=== PATIENT | male | born 1965 | race Caucasian/White ===

== ENCOUNTER 2021-12-27 11:12 | Outpatient (CLI) | payer OTHER, SELFPAY ==
--- NOTE | ~2021-12-27 | XR_ITS ---
EXAMINATION: XR knee RT 3V DATE: 12/27/2021 11:34 INDICATION: Right knee pain. TECHNIQUE: 3 views of right knee were obtained. COMPARISON: Right tibia and fibula radiographs 05/03/2014 FINDINGS: Bone alignment is normal. No fracture. There is mild osteoarthritis of medial and patellofe moral compartments. There is a large knee joint effusion. IMPRESSION: 1. Mild right knee osteoarthritis. 2. Large knee joint effusion. Reviewed, dictated and finalized at location E. 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
== END 2021-12-27 11:13 | disposition home or self-care (01) ==
LOC: CHSIMG 11:15
PROVIDERS: PCP Nurse Practitioner Family; Visit Provider Nurse Practitioner Family
DX: M25.561 Pain in right knee (principal)
CPT/HCPCS: 73562

== ENCOUNTER 2021-12-31 09:34 | Outpatient (CLI) | payer OTHER, SELFPAY ==
--- NOTE | ~2021-12-31 | MR_ITS ---
EXAMINATION: MR knee RT wo con DATE: 12/31/2021 11:25 INDICATION: Right knee pain TECHNIQUE: Magnetic resonance imaging (MRI) of the right knee was performed without intravenous contr ast. Sequences included coronal PD-weighted FSE, coronal PD-weighted FS FSE, sagittal T2-weighted FS E, sagittal PD-weighted FS FSE and axial PD weighted fat saturated FSE. COMPARISON: None. FINDINGS: Medial compartment: Complex tear at the posterior horn of the medial meniscus with longitudinal horizontal tear plane ext ending anteriorly into the medial meniscal body. Shallow chondral ulceration along the anterior weigh tbearing medial femoral condyle. Deeper chondral ulceration without degenerative subchondral changes at the central weightbearing medial femoral condyle. Partial-thickness cartilage loss with smooth cho ndral surface along the medial margin of the medial tibial plateau. Lateral compartment: Fraying along the free edge versus small radial tear along the inner margin of the body of the latera l meniscus. Partial-thickness chondral fissuring without degenerative subchondral changes at the ante rior weightbearing lateral femoral condyle and along the medial and posterior aspect of the lateral t ibial plateau including along the shoulder the intercondylar eminence. Patellofemoral compartment: Shallow chondral ulceration and scattered deep fissuring at the patella including at the apical ridge , medial and lateral facets. Trochlear cartilage is normal. Ligaments and tendons: Anterior and posterior cruciate ligaments are normal. The medial collateral ligament and fibular francisco ateral ligament complex are normal. Moderate tendinopathy without discrete tear at the distal quadric eps tendon. Mild proximal patellar tendinopathy. Mild semimembranosus tendinopathy without discrete t ear. The remainder of the visualized medial and lateral hamstring tendons as well as the iliotibial b and are normal. Fluid: Large right knee joint effusion with moderate scattered synovitis in the suprapatellar pouch and callie g the posterior margin of Hoffa's fat pad. No loose osteochondral bodies identified. Osseous/other: Normal marrow signal. No fracture or pathologic marrow replacing process. IMPRESSION: 1. Complex medial meniscal tear. 2. possible small radial tear versus focal fraying along the free edge of the body of the lateral men iscus. 3. Tricompartmental osteoarthritis and mild to moderate severity medial compartment and mild in the l ateral and patellofemoral compartments each with regions of moderate grade chondromalacia. 4. Large right knee joint effusion. 5. Moderate distal quadriceps and mild proximal patellar and distal semimembranosus tendinopathy with out discrete tears. Reviewed, dictated and finalized at location A. S SCULLION IMPRESSION: 1. Complex medial meniscal tear. 2. possible small radial tear versus focal fraying along the free edge of the b roberto carlos of the lateral meniscus. 3. Tricompartmental osteoarthritis and mild to moderate severity medial compart ment and mild in the lateral and patellofemoral compartments each with regions of moderate grade chondromalacia. 4. Large right knee joint effusion. 5. Moderate distal quadriceps and mild proximal patellar and distal semimembran osus tendinopathy without discrete tears.
== END 2021-12-31 09:35 | disposition home or self-care (01) ==
LOC: CHSIMG 09:36
PROVIDERS: PCP Nurse Practitioner Family; Visit Provider Nurse Practitioner Family
DX: M25.561 Pain in right knee (principal); M25.469 Effusion, unspecified knee
CPT/HCPCS: 73721

== ENCOUNTER 2022-04-14 08:07 | Emergency (ER) | payer OTHER, SELFPAY ==
--- NOTE | 2022-04-14 08:10 | ED.URI ---
HPI - URI/Sore Throat General Chief Complaint: Upper Respiratory Infection Stated Complaint: Cough/Chest Congestion Time Seen by Provider: 04/14/22 08:10 Source: patient and RN notes reviewed History of Present Illness HPI Narrative: Patient is a 56-year-old male who presents the urgent care with complaints of cough, chest congestion and wheezes. Patient states he does have a history of COPD and currently smokes approximately 1 pack/day. Patient denies any ill exposures, nausea, vomiting, fever. Patient has been taking a daily allergy medication as well as using his inhalers and Mucinex every 12 hours. No other acute complaints. No acute distress noted. Patient aware of the plan of care. Some parts of this dictation were generated by voice recognition software and may contain typographical and/or grammatical inaccuracies. Related Data Allergies Allergy/AdvReac Type Severity Reaction Status Date / Time No Known Allergies Allergy Verified 04/14/22 08:29 Review of Systems Review of Systems: CONSTITUTIONAL: Denies fever, chills, or sweats. EYES: Denies visual changes, redness, or discharge. ENT: Reports rhinorrhea and postnasal drainage CARDIOVASCULAR: Denies chest pain, palpitations, or edema. RESPIRATORY: Reports no wheezes, cough, chest congestion GASTROINTESTINAL: Denies abdominal pain, nausea, vomiting, or diarrhea. GENITOURINARY: Denies dysuria or hematuria. SKIN: Denies rash or itching. MUSCULOSKELETAL: Denies back pain, joint pain, or myalgia. NEUROLOGIC: Denies headache, numbness, or weakness. All other systems reviewed are negative, except as documented in HPI. [facility] Past Medical History Medical History COPD (chronic obstructive pulmonary disease) Surgical History Surgical History History of hernia surgery Social History Social History Smoking status: Current every day smoker Tobacco type: cigarettes Alcohol intake: current Comments At the time of my signature, I reviewed and agree with the nursing past medical, surgical, social, and family history. There is no relevant family history pertinent to the patient complaint. Exam Narrative: GENERAL: This is a well-nourished, well-developed patient, in no apparent distress. HEAD: normocephalic, atraumatic. EYES: PERRL. Sclera clear/white. Vision is grossly intact. EARS: External ears normal, auditory canals clear and without drainage, TMs normal without perforation. Hearing grossly intact. NOSE: External nose normal with no obvious nasal discharge, nares without redness, clear rhinorrhea. THROAT: Mucous membranes moist, posterior pharynx clear. Moderate postnasal drainage NECK: Neck supple CARDIOVASCULAR: Regular rate and rhythm without murmurs, gallops, or rubs. RESPIRATORY: Slight crackles throughout with expiratory wheezes to bilateral upper lobes SKIN: warm, intact with no suspicious lesions or rash, good texture and turgor. NEURO: awake, alert, and oriented to person, place and time. There were no obvious focal neurologic abnormalities. EXTREMITIES: No clubbing, cyanosis, or edema. Course Course Level of Care: Express Care Visit Vital Signs Vital signs: Vital Signs Temperature 97.9 F 04/14/22 08:14 Pulse Rate 83 04/14/22 08:14 Respiratory Rate 20 04/14/22 08:14 Blood Pressure 154/74 H 04/14/22 08:14 Pulse Oximetry 98 04/14/22 08:14 Temperature 97.9 F 04/14/22 08:14 Pulse Rate 83 04/14/22 08:14 Respiratory Rate 20 04/14/22 08:14 Blood Pressure 154/74 H 04/14/22 08:14 Pulse Oximetry 98 04/14/22 08:14 Reviewed-patient is informed that they may have pre-hypertension or hypertension based on a blood pressure reading in the department. I recommend the patient call the primary care provider listed on their discharge instructions or a physician of
[2022-04-14 08:14] VITALS: BP 154/74; PULSE 83; RESP 20; TEMP 36.6; O2SAT 98
== END 2022-04-14 08:47 | disposition home or self-care (01) ==
PROVIDERS: Emergency Provider Nurse Practitioner Family
DX: J44.9 Chronic obstructive pulmonary disease, unspecified (principal); F17.210 Nicotine dependence, cigarettes, uncomplicated; R06.2 Wheezing
CPT/HCPCS: 99213; G0463

== ENCOUNTER 2024-07-11 08:04 | Emergency (ER) | payer OTHER, SELFPAY ==
[2024-07-11 08:12] VITALS: BP 155/89; PULSE 98; RESP 20; TEMP 36.8; O2SAT 97
--- NOTE | 2024-07-11 08:15 | ED.EXTPRO ---
HPI - Extremity Problem General Chief complaint: Extremity Problem,Nontraumatic Stated complaint: Left Elbow Swelling Time Seen by Provider: 07/11/24 08:15 Source: patient Mode of arrival: ambulatory Limitations: no limitations History of Present Illness HPI Narrative: 58-year-old male presents with complaint pain, swelling and redness to left elbow since yesterday. Denies injury. Patient has several scratches to left forearm that he states are from his neighbor's dog 1 week ago. Patient has small scab near left elbow that he thought was possibly a insect bite. Denies itching to left elbow. Afebrile. Denies body aches, chills. All systems reviewed and negative except as noted above. Related Data Allergies Allergy/AdvReac Type Severity Reaction Status Date / Time No Known Allergies Allergy Verified 01/25/24 11:33 Review of Systems Review of Systems: CONSTITUTIONAL: Denies fever, chills, or sweats. EYES: Denies visual changes, redness, or discharge. ENT: Denies rhinorrhea, congestion, sore throat, or otalgia. CARDIOVASCULAR: Denies chest pain, palpitations, or edema. RESPIRATORY: Denies cough or dyspnea. GASTROINTESTINAL: Denies abdominal pain, nausea, vomiting, or diarrhea. GENITOURINARY: Denies dysuria or hematuria. SKIN: Denies rash or itching. MUSCULOSKELETAL: Reports pain, swelling, redness to left elbow. NEUROLOGIC: Denies headache, numbness, or weakness. PSYCHIATRIC: Denies anxiety or depression. All other systems reviewed are negative, except as documented in HPI. [facility] Past Medical History Medical History (Updated 07/11/24 @ 08:25 by Sherrie Peñaloza NP) COPD (chronic obstructive pulmonary disease) Positive colorectal cancer screening using Cologuard test Surgical History Surgical History History of hernia surgery Social History Social History Smoking status: Current every day smoker Tobacco type: cigarettes Alcohol intake: current Comments At time of signature, agree with nursing past medical, surgical, social and family history. There is no relevant family history pertinent to the presenting complaint. Exam Narrative: GENERAL: This is a well-nourished, well-developed patient, in no apparent distress. HEAD: normocephalic, atraumatic. EYES: PERRL. Sclera clear/white. Vision is grossly intact. EARS: External ears normal NOSE: External nose normal NECK: Neck supple, non-tender without lymphadenopathy, masses or thyromegaly. CARDIOVASCULAR: Regular rate and rhythm without murmurs, gallops, or rubs. RESPIRATORY: Clear to auscultation. Breath sounds equal bilaterally. No wheezes, rales, or rhonchi. SKIN: warm, Dry, intact with no suspicious lesions or rash, good texture and turgor. NEURO: awake, alert, and oriented to person, place and time. There were no obvious focal neurologic abnormalities. EXTREMITIES: erythema, swelling, tenderness to L elbow. fluctuance to bursal sac. no drainage. full ROM to L elbow, distal NV intact. Course Course Level of Care: Express Care Visit Vital Signs Vital signs: Vital Signs Temperature 36.8 C 07/11/24 08:12 Pulse Rate 98 07/11/24 08:12 Respiratory Rate 20 07/11/24 08:12 Blood Pressure 155/89 H 07/11/24 08:12 Pulse Oximetry 97 07/11/24 08:12 Oxygen Delivery Room Air 07/11/24 08:12 Temperature 36.8 C 07/11/24 08:12 Pulse Rate 98 07/11/24 08:12 Respiratory Rate 20 07/11/24 08:12 Blood Pressure 155/89 H 07/11/24 08:12 Pulse Oximetry 97 07/11/24 08:12 Oxygen Delivery Room Air 07/11/24 08:12 reviewed MDM - Extremity (Nontraumatic) MDM Narrative Medical decision making narrative: most likely olecranon bursitis to L elbow. possibly related to recent scratches from a dog 1 wk ago. afebrile, nontoxic. ROM and NV intact. will start abx and refer to orthopedics. Patient is aware
== END 2024-07-11 08:38 | disposition home or self-care (01) ==
PROVIDERS: Emergency Provider Nurse Practitioner Family
DX: M70.22 Olecranon bursitis, left elbow (principal); E03.0 Congenital hypothyroidism with diffuse goiter; J44.9 Chronic obstructive pulmonary disease, unspecified; F17.210 Nicotine dependence, cigarettes, uncomplicated
CPT/HCPCS: 87070; 87075; 87181; 87205; 99213; G0463

== ENCOUNTER 2024-07-11 15:57 | Outpatient (NON) | payer OTHER, SELFPAY | END 2024-07-11 15:58 | disposition home or self-care (01) | LOC: ANHLAB 16:01 | PROVIDERS: Visit Provider Orthopaedic Surgery | DX: M70.22 Olecranon bursitis, left elbow (principal) | CPT/HCPCS: 87070; 87075; 87181; 87205 ==

== ENCOUNTER 2024-09-23 08:00 | Outpatient (RCR) | payer OTHER, SELFPAY ==
--- NOTE | 2024-08-25 10:20 | OPREHPOC ---
Outpatient Therapy Plan of Care This is a Multidisciplinary Plan of Care that may contain components documented by all disciplines (PT, OT, and ST.) PT Problem 1 PT Problem #1 Knowledge Deficit PT Goal 1 Goal / Goal Update [place] with HEP Target Visit 4 PT Problem 2 PT Problem #2 Impaired Range of Motion PT Goal 1 Goal / Goal Update Patient will achieve 170 degrees pain free right shoulder flexion for improved reaching ability for work related activity Target Visit 8 PT Goal 2 Goal / Goal Update Patient will improve R shoulder internal rotation to 70 degrees to reduce capsular impingement for improved humeral head mobility and reduced impingement with repetitive activity Target Visit 8 PT Problem 3 PT Problem #3 Impaired Strength PT Goal 1 Goal / Goal Update Improve R shoulder flexion strength to 4+/5 to improve active object lifting and overhead activity for work related function Target Visit 8 PT Goal 2 Goal / Goal Update Improve R shoulder external rotation strength to 4 +/5 to improve capsular stability of shoulder complex Target Visit 8
--- NOTE | 2024-08-25 10:21 | PTOPEVAL1 ---
Assessment and note entered by Deric Laughlin, PT Evaluation Information Assessment Status Evaluation Diagnosis Unspecified rotator cuff tears of fior shoulders ICD-10 Condition Codes (PT) M25.511,M25.512 Onset 2019 Subjective Information Reports that he has been having a bit more pain in his right shoulder with working but in his left shoulder with sleeping. He is right handed and feels that he is having more pain in his right shoulder. Reports that he does get numbness and tingling in his left index finger and thumb. Progressive insidious onset of pain. 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 Reported Pain Level Pain Score 2,1: Self Report Assessment PT Clinical Summary Patient presents with minor ROM loss with greatest deficit in posterior capsule in R shoulder resulting in impingement and pain in overhead activity. Patient weakness noted in upper rotator cuff with tenderness for supraspinatus musculature on dominant shoulder right. Patient will benefit from skilled therapy to address these deficits to improve stability and functional motion for pain relief and improved functional capacity. Plan of Care Interventions Electrical Stimulation,Hot Pack/Cold Pack,Manual Therapy,Neuro Re-education,Therapeutic Activities, Therapeutic Exercise PT Services Indicated Yes Treatment Frequency and 2x/week for 8 visits Duration These treatments will address the objective and functional deficits as defined above. The patient will be advanced safely and appropriately in order for the patient to progress towards his/her prior level of function. Additional exercises will be introduced and as well as a comprehensive home exercise program upon discharge, if needed, ?to ensure carryover of functional gains achieved in the clinic. This treatment plan has been reviewed and agreement upon by the patient.
--- NOTE | 2024-09-23 08:31 | PTOPDC ---
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 Education for posture, home exercises and pain management completed. The goals were partially met. Discharge PT, he is to continue with his HEP and returned to in October for follow up. Plan of Care PT Services Indicated No
== END 2024-09-23 08:53 | disposition home or self-care (01) ==
LOC: ANHPT 08:00
PROVIDERS: Visit Provider Orthopaedic Surgery
DX: M75.101 Unspecified rotator cuff tear or rupture of right shoulder, not specified as traumatic (principal); M12.811 Other specific arthropathies, not elsewhere classified, right shoulder; M12.812 Other specific arthropathies, not elsewhere classified, left shoulder; M75.102 Unspecified rotator cuff tear or rupture of left shoulder, not specified as traumatic
CPT/HCPCS: 97014; 97110; 97140; 97161; 97530; G0283

== ENCOUNTER 2024-12-14 09:11 | Outpatient (CLI) | payer OTHER, SELFPAY ==
--- NOTE | ~2024-12-14 | MR_ITS ---
EXAMINATION: MR shoulder LT wo con DATE: 12/14/2024 10:05 INDICATION: Left shoulder pain. TECHNIQUE: Magnetic resonance imaging (MRI) of the left shoulder was performed without intravenous co ntrast. Sequences included axial PD-weighted FS FSE, coronal oblique PD-weighted FS FSE and T2-weight ed FS FSE, and sagittal oblique T2-weighted FS FSE and T1-weighted FSE. COMPARISON: Left shoulder radiographs 08/05/2024 FINDINGS: Coracoacromial arch: The acromion undersurface is curved in morphology (type II). There is severe acromioclavicular joint osteoarthritis including inferior directed osteophytes. There is mild subacromial/subdeltoid bursitis . Rotator cuff: There is mild supraspinatus and infraspinatus tendinopathy. Teres minor tendon is normal. Subscapular is tendon is normal. There is mild fatty atrophy of subscapularis and teres minor muscle bellies. Biceps tendon and glenoid labrum: Biceps tendon is in bicipital groove. Intra-articular biceps tendon is normal. There is a tear of pos terior inferior glenoid labrum with multiloculated paralabral cyst measuring 2.4 x 0.6 cm . Fluid: There is no glenohumeral joint effusion. Bones/cartilage: There is shallow partial-thickness cartilage loss of glenoid. There is cartilage surface irregularity of humeral head. IMPRESSION: 1. Mild rotator cuff tendinopathy. No tear. 2. Mild glenohumeral joint chondrosis. 3. Tear of posterior inferior labrum with paralabral cyst. 4. Severe acromioclavicular joint osteoarthritis. Reviewed, dictated and finalized at location B. 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
--- NOTE | ~2024-12-14 | MR_ITS ---
EXAMINATION: MR shoulder RT wo con DATE: 12/14/2024 09:52 INDICATION: Right shoulder pain. TECHNIQUE: Magnetic resonance imaging (MRI) of the right shoulder was performed without intravenous c ontrast. Sequences included axial PD-weighted FS FSE, coronal oblique PD-weighted FS FSE and T2-weigh laura FS FSE, and sagittal oblique T2-weighted FS FSE and T1-weighted FSE. COMPARISON: Right shoulder radiographs 08/05/2024 FINDINGS: Coracoacromial arch: The acromion undersurface is curved in morphology (type II). There is severe acromioclavicular joint osteophytosis including inferiorly directed osteophytes. There is a physiologic volume of fluid in silverman bacromial/subdeltoid bursa. Rotator cuff: There is mild supraspinatus tendinopathy and moderate infraspinatus tendinopathy. Teres minor tendon is normal. There is mild subscapularis tendinopathy. There is mild fatty atrophy of infraspinatus mus alex belly. Biceps tendon and glenoid labrum: Biceps tendon is in bicipital groove. Intra-articular biceps tendon is normal. There is a degenerativ e tear of superior labrum from 11:00 to 12:00 (SLAP tear). Fluid: There is a small glenohumeral joint effusion with loose bodies measuring up to 7 mm. Bones/cartilage: There is partial-thickness cartilage loss of glenoid and humeral head, deep at the glenoid central ar ticular surface. IMPRESSION: 1. Moderate rotator cuff tendinopathy. No tear. 2. Moderate glenohumeral joint chondrosis. 3. Small glenohumeral joint effusion with loose bodies. 4. Severe acromioclavicular joint osteoarthritis. Reviewed, dictated and finalized at location B. LAR JS DEVELOPER
== END 2024-12-14 09:12 | disposition home or self-care (01) ==
PROVIDERS: PCP Physician Assistant Surgical; Visit Provider Physician Assistant Surgical
DX: M19.011 Primary osteoarthritis, right shoulder (principal); M19.012 Primary osteoarthritis, left shoulder; M24.011 Loose body in right shoulder
CPT/HCPCS: 73221

== ENCOUNTER 2025-01-11 13:38 | Outpatient (CLI) | payer OTHER, SELFPAY ==
--- NOTE | ~2025-01-11 | XR_ITS ---
EXAMINATION: XR lg joint inject/asp w image, XR lg joint inject/asp add DATE: 01/11/2025 14:56 INDICATION: Bilateral shoulder pain TECHNIQUE: A time-out was performed to verify the patient's name, date of , and procedure to b e performed. The procedure including the risks, benefits, and alternatives was discussed with the pat ient. Risks discussed included bleeding and infection. The patient understood the risks and agreed to proceed. Attention was first turned to the right shoulder. The skin overlying the rotator cuff inter ashley of the right humeral joint was prepped and draped in usual sterile fashion. Anesthetic was admin istered with 1% lidocaine subcutaneously. A 22 G needle was advanced under fluoroscopic guidance int o the joint. Injection of 1 mL of Omnipaque 240 confirmed intra-articular position of the needle. S ubsequently, injectate consisting of 5 mm a 4:1 mixture of 1% lidocaine: 80 mg/mL Depo-Medrol for a t otal dosage of 80 mg Depo-Medrol was instilled. Washout of contrast was seen confirming intra-articul ar administration. The needle was removed and the entry site was cleaned and dressed. Attention was next turned to the left shoulder. The skin overlying the rotator cuff interval of the l eft humeral joint was prepped and draped in usual sterile fashion. Anesthetic was administered with 1% lidocaine subcutaneously. A 22 G needle was advanced under fluoroscopic guidance into the joint. Injection of 1 mL of Omnipaque 240 confirmed intra-articular position of the needle. Subsequently, injectate consisting of 5 mm a 4:1 mixture of 1% lidocaine: 80 mg/mL Depo-Medrol for a total dosage o f 80 mg Depo-Medrol was instilled. Washout of contrast was seen confirming intra-articular administra tion. The needle was removed and the entry site was cleaned and dressed. There were no immediate com plications. Fluoroscopy exposure time for the combined procedures was 0.2 minutes. A total Total DAP was 0.5 Gycm^2 The total number of images was 4. FINDINGS: Real-time fluoroscopy demonstrates the needle and contrast first in the right glenohumeral joint and subsequently in the left glenohumeral joint. Patient's pain prior to procedure:04/01. Patie nt's pain following the procedure: 04/01. IMPRESSION: 1. Successful left glenohumeral joint injection of local anesthetic and steroid with no change in the patient's presenting pain. 2. Successful right glenohumeral joint injection of local anesthetic and steroid with no change in th e patient's presenting pain. Reviewed, dictated and finalized at location A. DISCHARGE IMPRESSION: 1. Successful left glenohumeral joint injection of local anesthetic and steroid with no change in the patient's presenting pain. 2. Successful right glenohumeral joint injection of local anesthetic and steroi d with no change in the patient's presenting pain.
--- OUTSIDE RECORDS SUMMARY | 2025-01-11 13:43 | XMS_ITS | Referral Summary ---
Author Organization [facility] Medical Office Building B Address [address] [place] [address] Care Team Providers Care Coke Crane Operator Name Role Phone Bruce Holbrook MD Primary Care Provider + Encounters Date Type Department Care Team Description 11/29/2024 Telephone [facility] Pulmonary at [address] [place] [phone] Margarita Parsons LPN 11/11/2024 Telephone [facility] Gastroenterology at [address] [place] [phone] Bert Reynolds DO 11/08/2024 10:55 AM MEDICAL RADIATION THERAPIST Lab [address] Centrilobular emphysema (HCC) 11/08/2024 10:30 AM MEDICAL RADIATION THERAPIST Office Visit [facility] Pulmonary at [address] [place] [id number] Eyal Collazo DO Centrilobular emphysema (HCC) (Primary Dx); Tobacco use; Pulmonary nodules; Personal history of nicotine dependence 10/25/2024 3:10 PM MEDICAL RADIATION THERAPIST - 10/25/2024 11:59 PM MEDICAL RADIATION THERAPIST Hospital Encounter [address] [address] Personal history of nicotine dependence Discharge Disposition: Discharge to home or self care 10/25/2024 3:10 PM MEDICAL RADIATION THERAPIST - 10/25/2024 11:59 PM MEDICAL RADIATION THERAPIST Hospital Encounter [facility] Respiratory [address] [place] [id number] Chronic obstructive pulmonary disease with acute exacerbation (HCC) Discharge Disposition: Discharge to home or self care 10/24/[address] [place] [address] Chiara Hurd RN from Last 3 Months Allergies No known active allergies Medications albuterol HFA (PROVENTIL HFA,VENTOLIN HFA,PROAIR HFA) 90 mcg/actuation inhaler Inhale 2 puffs every 4 (four) hours as needed Active predniSONE (DELTASONE) 20 mg tablet Take 1 tablet (20 mg) by mouth daily 11/01/2024 Active cetirizine 10 mg capsule Take 1 tablet by mouth daily Active fluticasone-umec lidin-vilanter (Trelegy Ellipta) 200-62.5-25 mcg inhaler Inhale 1 puff daily 1 each 11 11/08/2024 Active Active Problems Problem Noted Date Diagnosed Date Encounter for screening colonoscopy 11/11/2024 Pulmonary nodules 11/08/2024 Centrilobular emphysema 11/08/2024 Tobacco use 11/08/2024 Social History Tobacco Use Types Packs/Day Years Used Date Smoking Tobacco: Every Day Cigarettes 1 26.1 Started: 1998 Passive Smoke Exposure: Past Smokeless Tobacco: Former Chew Tobacco Cessation:Ready to Q uit: Not Asked; Counseling Given: Not Answered Alcohol Use Standard Drinks/Week Comments Yes 0 (1 standard drink = 0.6 oz pur e alcohol) AUDIT-C Answer Date Recorded Q1: How often do you have a drink containing alcohol? 4 or more times a week 11/08/2024 Average Number of Drinks Not on file 024 Frequency of Binge Drinking Not on file 10/23 Sex and Gender Information Value Date Recorded Sex Assigned at Not on file Legal Sex Male 11:49 PM MEDICAL RADIATION THERAPIST Gender Identity Not on file Sexual Orientation Not on file Last Filed Vital Signs Vital Sign Reading Time Taken Comments Blood Pressure 148/74 11/08/2024 10:25 AM MEDICAL RADIATION THERAPIST Pulse 93 11/08/2024 10:25 AM MEDICAL RADIATION THERAPIST Temperature 36.8 C (98.2 F) 11/08/2024 10:25 AM MEDICAL RADIATION THERAPIST Respiratory Rate 16 11/08/2024 10:25 AM MEDICAL RADIATION THERAPIST Oxygen Saturation 93% 11/08/2024 10:25 AM MEDICAL RADIATION THERAPIST Inhaled Oxygen Concentration - - Weight 116.6 kg (257 lb) 11/08/2024 10:25 AM MEDICAL RADIATION THERAPIST Height 180.3 cm (5' 11 ) 11/08/2024 10:25 AM MEDICAL RADIATION THERAPIST Body Mass Index 35.84 11/08/2024 10:25 AM MEDICAL RADIATION THERAPIST Plan of Treatment Upcoming Encounters Date Type Department Care Team (Late st Contact Info) Description 06/06/2025 7:30 AM CDT Hospital Encounter [facility] [address] [place] [address] Bert Reynolds, DO [address] [facility] [address] [place] [address] 06/06/2025 7:30 AM CDT - 06/06/2025 8:00 AM CDT Surgery [address] [address] Bert Reynolds, [address] [facility] [address] [place] [address] COLONOSCOPY Scheduled Procedures Name Priority Associated Diagnoses Date/Ti me COLONOSCOPY Encounter for screening colonoscopy 06/06/2025 7:30 AM CDT Procedures Procedure Name Priority Date/Time Associated Diagnosis Comments DIFFERENTIAL AUTO Routine 11/08/2024 10: 58 AM MEDICAL RADIATION THERAPIST Centrilobular emphysema (HCC) CBC WITH AUTO DIFFERENTIAL Routine 11/08/2024 10:58 AM MEDICAL RADIATION THERAPIST Centrilobular emphysema (HCC) IGE Routine 11/08/2024 10:58 AM MEDICAL RADIATION THERAPIST Centrilobular emphysema (HCC) CT LUNG CANCER SCREENING Schedule Routine, Read Routine (OP Routine) 10/25/2024 4:13 PM MEDICAL RADIATION THERAPIST Personal history of nicotine dependence PULMONARY FUNCTION TEST (PFT) Routine 10/25/2024 4:06 PM MEDICAL RADIATION THERAPIST Chronic obstructive pulmonary disease with acute exacerbation (HCC) from Last 3 Months Results * (ABNORMAL) Differential, auto (11/08/2024 10:58 AM MEDICAL RADIATION THERAPIST) Neutrophil abs 9.5(H) 1.5 - 6.5 K/cumm Imm gran abs 0.3(H) 0.0 - 0.1 K/cumm [facility] Lymphocyte abs 2.5 0.8 - 3.3 K/cumm [facility] ([place]) Monocyte abs 1.2(H) 0.2 - 0.8 K/cumm [facility] ([place]) Eosinophil abs 0.3 0.0 - 0.5 K/cumm [facility] ([place]) Basophil abs 0.1 0.0 - 0.1 K/cumm [facility] ([place]) Neutrophil pct 68.1 % [facility] Comment: Interpretive Data Percent cell count reference ranges are not reported, since discordance with absolute values may lead to misinterpretation of CBC data. Current Interpretive Data was last revised on 2018. Imm gran pct 2.4 % [facility] ([place]) Comment: Interpretive Data Percent cell count reference ranges are not reported, since discordance with absolute values may lead to misinterpretation of CBC data. Current Interpretive Data was last revised on 2018. Lymphocyte pct 18.0 % [facility] ([place] Comment: Interpretive Data Percent cell count reference ranges are not reported, since discordance with absolute values may lead to misinterpretation of CBC data. Current Interpretive Data was last revised on 2018. Monocyte pct 8.3 % [facility] ([place]) Comment: Interpretive Data Percent cell count reference ranges are not reported, since discordance with absolute values may lead to misinterpretation of CBC data. Current Interpretive Data was last revised on 2018. Eosinophil pct 2.4 % [facility] Comment: Interpretive Data Percent cell count reference ranges are not reported, since discordance with absolute values may lead to misinterpretation of CBC data. Current Interpretive Data was last revised on 2018. Basophil pct 0.8 % [facility] ([place]) Comment: Interpretive Data Percent cell count reference ranges are not reported, since discordance with absolute values may lead to misinterpretation of CBC data. Current Interpretive Data was last revised on 2018. Blood 11/08/2024 10:5 8 AM MEDICAL RADIATION THERAPIST 11/08/2024 1:34 PM MEDICAL RADIATION THERAPIST [facility] [address] [facility] LAB BLOOD ORDERABLES Amelia l Result [facility] ([place] 1 [facility] [employer] [place] [address] * (ABNORMAL) CBC with auto differential (11/08/2024 10:58 AM MEDICAL RADIATION THERAPIST) WBC 13.9(H) 3.8 - 9.9 K/cumm Hgb 16.2 13.0 - 17.5 g/dL [facility] ([place] Hct 47.6 38.9 - 50.3 % [facility] Plt 328 150 - 400 K/cumm [facility] ([place]) MPV 9.0(L) 9.1 - 12.3 fL [facility] RBC 4.91 4.30 - 5.80 M/cumm [facility] ([place]) MCV 96.9(H) 81.3 - 96.4 fL [facility] ([place]) MCH 33.0 27.1 - 33.3 pg [facility] ([place] MCHC 34.0 32.3 - 35.7 g/dL [facility] ([place]) RDW CV 12.1 11.1 - 14.9 % [facility] RDW SD 43.7 35.7 - 48.1 fL [facility] ([place] NRBC abs 0.00 0.00 - 0.01 K/cumm [facility] ([place]) Blood 11/08/2024 10:5 8 AM MEDICAL RADIATION THERAPIST 11/08/2024 1:34 PM MEDICAL RADIATION THERAPIST [facility] [address] [facility] LAB BLOOD ORDERABLES Amelia l Result [facility] ([place] 1 [facility] [employer] [place] [address] * (ABNORMAL) IgE (11/08/2024 10:58 AM MEDICAL RADIATION THERAPIST) IgE 247(H) <=100 IUnits/mL Comment:Testing performed by : [facility], [address] [facility], [place]., [address] Blood 11/08/2024 10:5 8 AM MEDICAL RADIATION THERAPIST 11/08/2024 4:59 PM MEDICAL RADIATION THERAPIST Eyal Torrey Zay DO LAB BLOOD ORDERABLES Amelia l Result [facility] ([place]) 1 [facility] [place] [address] * CT Lung Cancer Screening (10/25/2024 4:13 PM MEDICAL RADIATION THERAPIST) Anatomical Region Laterality Modality Chest N/A Computed Tomogra phy 10/28/2024 9:04 AM MEDICAL RADIATION THERAPIST Narrative 10/28/2024 9:14 AM MEDICAL RADIATION THERAPIST EXAM DESCRIPTION: CT LUNG CANCER SCREENING REASON FOR STUDY: Screening CT of the chest in a current smoker with a 26 pack year smoking history. Additional history: None. TECHNIQUE: Low dose CT scan of the chest was performed without intravenous contrast using helical scanning technique. The exam extends from the lung apices through the lung bases. Automatic exposure control was used as a dose optimization technique. NOTE: This study was performed for the specific purposes of lung cancer screening and is not an alternative to diagnostic chest CT. The sensitivity for detection of solid visceral lesions is diminished without the use of intravenous contrast. RADIATION DOSE: CT dose index volume (CTDIvol) = 1.80 mGy COMPARISON: None FINDINGS: SMOKING RELATED LUNG DISEASE: Mild to moderate paraseptal emphysematous changes. Minimal diffuse bronchial wall thickening. LUNG NODULES: Subpleural noncalcified 2 mm nodule in the lateral right upper lobe (image 116). There is a subpleural noncalcified 3 mm nodule in the right upper lobe (image 159). Noncalcified 4 mm nodule in the left lower lobe (image 258). Noncalcified 5 mm nodule in the left lower lobe (image 232). Subpleural noncalcified 6 mm nodule in the left lower lobe (image 217). Noncalcified 2 mm nodule in the right lower lobe (image 228). PLEURAE: No pneumothorax or pleural effusion. MEDIASTINUM/ELIZABETH: No mediastinal or hilar lymphadenopathy within the limitations of a noncontrast exam. HEART: Heart size is within normal limits. Trace pericardial effusion. CORONARY ARTERY CALCIFICATION: Trace VASCULATURE: The ascending thoracic aorta is borderline enlarged measuring 4 cm. AXILLAE: No lymphadenopathy. CHEST WALL: Mild bilateral gynecomastia. HARDWARE/LINES/TUBES: None. UPPER ABDOMEN: Hepatic steatosis. MUSCULOSKELETAL: Moderate thoracic spondylosis. IMPRESSION: Noncalcified solid pulmonary nodules measuring up to 5 mm. There is a juxtapleural 6 mm solid nodule. Mild to moderate paraseptal emphysematous changes. Lung-RADS category 2: Benign appearance or behavior. Recommendation: Low dose Screening CT of chest in 12 months. THIS IS AN ELECTRONICALLY VERIFIED FINAL REPORT 10/28/2024 9:14 AM - Electronically signed by Jonathan Hough M.D. LB: FLORES Report ID: [id number] Reading Location: [place] [address] Procedure Note Jonathan Hough MD - 10/28/2024 EXAM DESCRIPTION: CT LUNG CANCER SCREENING REASON FOR STUDY: Screening CT of the chest in a current smoker with a26 pack year smoking history. Additional history: None. TECHNIQUE: Low dose CT scan of the chest was performed without intravenous contrast using helical scanning technique. The exam extends from the lung apices through the lung bases. Automatic exposure control was used as adose optimization technique. NOTE: This study was performed for the specific purposes of lung cancer screening and is not an alternative to diagnostic chest CT. Thesensitivity for detection of solid visceral lesions is diminished without the use of intravenous contrast. RADIATION DOSE: CT dose index volume (CTDIvol) = 1.80 mGy COMPARISON: None FINDINGS: SMOKING RELATED LUNG DISEASE: Mild to moderate paraseptal emphysematous changes. Minimal diffuse bronchial wall thickening. LUNG NODULES: Subpleural noncalcified 2 mm nodule in the lateral rightupper lobe (image 116). There is a subpleural noncalcified 3 mm nodule in theright upper lobe (image 159). Noncalcified 4 mm nodule in the left lower lobe (image 258). Noncalcified 5 mm nodule in the left lower lobe (image 232). Subpleural noncalcified 6 mm nodule in the left lower lobe (image 217). Noncalcified 2 mm nodule in the right lower lobe (image 228). PLEURAE: No pneumothorax or pleural effusion. MEDIASTINUM/ELIZABETH: No mediastinal or hilar lymphadenopathy within the limitations of a noncontrast exam. HEART: Heart size is within normal limits. Trace pericardial effusion. CORONARY ARTERY CALCIFICATION: Trace VASCULATURE: The ascending thoracic aorta is borderline enlargedmeasuring 4 cm. AXILLAE: No lymphadenopathy. CHEST WALL: Mild bilateral gynecomastia. HARDWARE/LINES/TUBES: None. UPPER ABDOMEN: Hepatic steatosis. MUSCULOSKELETAL: Moderate thoracic spondylosis. IMPRESSION: Noncalcified solid pulmonary nodules measuring up to 5 mm. There is a juxtapleural 6 mm solid nodule. Mild to moderate paraseptal emphysematous changes. Lung-RADS category 2: Benign appearance or behavior. Recommendation: Low dose Screening CT of chest in 12 months. THIS IS AN ELECTRONICALLY VERIFIED FINAL REPORT 10/28/2024 9:14 AM - Electronically signed by Jonathan Hough M.D. LB: LB Report ID: [id number] Reading Location: [place] [address] Eyal Collazo DO IMG CT PROCEDURES Final R esult * Pulmonary Function Test - (10/25/2024 4:06 PM MEDICAL RADIATION THERAPIST) Anatomical Region Laterality Modality PFT 10/25/2024 3:19 PM MEDICAL RADIATION THERAPIST Impressions 10/26/2024 1:25 PM MEDICAL RADIATION THERAPIST 1. Spirometry is consistent with moderate obstructive defect with reduced FVC in the setting of air trapping. 2. Lung volumes demonstrate air trapping. 3. Diffusion capacity is normal. Electronically signed by Eyal Collazo DO Pulmonary & Critical Care Narrative 10/26/2024 1:25 PM MEDICAL RADIATION THERAPIST PFT performed at:-[facility] PULMONARY FUNCTION TESTS Elie Torres 58 y.o. 10/26/2024 INTERPRETATION Please see technologist's comments mentioned in attached results report. SPIROMETRY: Pre bronchodilator FEV1 is 50 % predicted, FVC is 75 % predicted, FEV1/FVC is 53 Bronchodilator response: There is no acute response to bronchodilators. Inspection of the patient's flow-volume loops consistent with expiratory obstruction. LUNG VOLUMES: Lung volumes by body plethysmography: TLC is 91 % predicted, RV is 122 % predicted DLCO: Unadjusted for hemoglobin and carboxyhemoglobin DLCO is 100 % predicted Eyal Collazo DO PFT ORDERABLES Final Res ult from Last 3 Months Insurance R [facility] HMO/PPO Address: [address] [address] Care Teams Coke Crane Operator Relationship Specialty Start Date End Date Bruce Holbrook MD [address] [address] PCP - General Internal Medicine 11/08/24
--- OUTSIDE RECORDS SUMMARY | 2025-01-11 13:43 | XMS_ITS | Clinical Summary ---
Author Organization [facility] Address [address] [place] [address] Care Team Providers Care Melter Loader Name Role Phone None, Provider MD Primary Care Provider Unavaila ble Allergies No known active allergies Medications fluticasone furoate-vilanter ol 200-25 MCG/INH inhalerIndicatio ns:Simple chronic bronchitis ([facility]),Wheezin g Inhale 1 puff into the lungs daily. 1 Inhaler 5 9 Active fluticasone-salm eterol (ADVAIR HFA) 230-21 MCG/ACT inhalerIndicatio ns:Wheezing,Purchasing Analyst anjelica obstructive pulmonary disease, unspecified COPD type ([facility]) Inhale 2 puffs into the lungs 2 (two) times daily. 12 g 2 0 Active albuterol sulfate HFA 108 (90 Base) MCG/ACT inhalerIndicatio ns:Wheezing Inhale 1 puff into the lungs every 6 (six) hours as needed for Wheezing or Shortness of breath. FOR WHEEZING 18 g 1 Active Active Problems Problem Noted Date Diagnosed Date Erectile dysfunction, unspecified erectile dysfu nction type 06/13/2020 Chronic obstructive pulmonar y disease, unspecified COPD type ([facility]) 06/13/2020 Simple chronic bronchitis ([facility]) 08/0 05/2019 Wheezing 06/29/2019 Depression 08/26/2012 Immunizations Name Administration Dates Next Due Tdap (Generic) 10/08/2017 Family History Medical History Relation Comments cardiac disorder Father Hypertension Mother Relation Status Comments Father Mother Social History Tobacco Use Types Packs/Day Years Used Date Smoking Tobacco: Every Day Cigarettes 1 35 Smokeless Tobacco: Never Tobacco Cessation:Ready to Q uit: No Alcohol Use Standard Drinks/Week Comments Yes 0 (1 standard drink = 0.6 oz pur e alcohol) AUDIT-C Answer Date Recorded Frequency of Alcohol Consumption 4 or more times a week 11/11/2018 Average Number of Drinks 1 or 2 018 Frequency of Binge Drinking Weekly 10/24 Education Answer Date Recorded What is the highest level of school you have completed or the highest degree you have received? High school graduate 11/11/2018 Sex and Gender Information Value Date Recorded Sex Assigned at Male 11/11/2018 4:37 PM GARAGE LABORER Legal Sex Male 7:38 PM CDT Gender Identity Male 11/11/2018 4:37 PM GARAGE LABORER Sexual Orientation Straight 11/11/2018 4: 37 PM GARAGE LABORER Last Filed Vital Signs Vital Sign Reading Time Taken Comments Blood Pressure 116/66 06/12/2020 3:34 PM CDT Pulse 84 06/12/2020 3:34 PM CDT Temperature 36.5 C (97.7 F) 06/12/2020 3:34 PM CDT Respiratory Rate 18 06/12/2020 3:34 PM CDT Oxygen Saturation 95% 06/12/2020 3:34 PM CDT Inhaled Oxygen Concentration - - Weight 92.1 kg (203 lb) 06/12/2020 3:34 PM CDT Height 165.1 cm (5' 5 ) 06/12/2020 3:34 PM CDT Body Mass Index 33.78 06/12/2020 3:34 PM CDT Plan of Treatment Health Maintenance Due Date Last Done Comments Colorectal Cancer Screening Colonoscopy (10 Years) 1967 Annual Physical 1970 Pneumococcal Vaccine: Pediat rics (0 to 5 Years) and At-Risk Patients (6 to 64 Years) (1 of 2 - PCV) 1973 Hepatitis C 1985 Hepatitis B Vaccines (1 of 3 - 19+ 3-dose series) 1986 Zoster Vaccines (1 of 2) 2017 COVID-19 Vaccine (2023-2 5 season) 2024 Influenza Adult (#1) 2024 DTaP, Tdap and Td Vaccines ( 2 - Td or Tdap) 10/08/2027 10/08/2017 Meningococcal B Vaccine Aged Out No l onger eligible based on patient's age to complete this topic Meningococcal Vaccine Aged Out No parker sherry eligible based on patient's age to complete this topic RSV Immunizations Under 20 Months Aged Out No longer eligible based on patient's age to complete this topic Insurance [employer] Care Teams Melter Loader Relationship Specialty Start Date End Date None, Provider, PCP - General UNKNOWN PHYSICIAN SPECIALTY 01/20/24
--- OUTSIDE RECORDS SUMMARY | 2025-01-11 13:43 | XMS_ITS | Clinical Summary ---
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 Medical Group Pulmonary at [address] [place] [address] Margarita Parsons LPN 11/11/[address] [facility] Medical Group Gastroenterology at [address] [place] [address] Bert Reynolds, 11/08/2024 10:55 AM BOOK CUTTER Lab [address] Centrilobular emphysema (HCC) 11/08/2024 10:30 AM BOOK CUTTER Office Visit [facility] Medical Group Pulmonary at [place] [address] [facility] [address] [place] [address] Eyal Collazo DO Centrilobular emphysema (HCC) (Primary Dx); Tobacco use; Pulmonary nodules; Personal history of nicotine dependence 10/25/2024 3:10 PM BOOK CUTTER - 10/25/2024 11:59 PM BOOK CUTTER Hospital Encounter [facility] 1 [place] [address] Personal history of nicotine dependence Discharge Disposition: Discharge to home or self care 10/25/2024 3:10 PM BOOK CUTTER - 10/25/2024 11:59 PM BOOK CUTTER Hospital Encounter [facility] Respiratory 1 [place] [address] Chronic obstructive pulmonary disease with acute exacerbation (HCC) Discharge Disposition: Discharge to home or self care 10/24/2024 Telephone [facility] 1 [place] [address] Chiara Hurd RN from Last 3 Months Medical History Medical History Date Comments COPD (chronic obstructive pulmonary disease) (HC C) Arthritis Family History Medical History Relation Name Comments Other Father Alive and well; Cancer Father's Sister Lung cancer Father's Sister Hypertension Mother Hypertension; Other Mother Alive and well; Relation Name Status Comments Father Alive Father's Sister Mother Alive Social History Tobacco Use Types Packs/Day Years Used Date Smoking Tobacco: Every Day Cigarettes 1 .1 Started: 1998 Passive Smoke Exposure: Past Smokeless [...] on file Legal Sex Male 11:49 PM BOOK CUTTER Gender Identity Not on file Sexual Orientation Not on file Obstetrics History Last Filed Vital Signs Vital Sign Reading Time Taken Comments Blood Pressure 148/74 11/08/2024 10:25 AM BOOK CUTTER Pulse 93 11/08/2024 10:25 AM BOOK CUTTER Temperature 36.8 C (98.2 F) 11/08/2024 10:25 AM BOOK CUTTER Respiratory Rate 16 11/08/2024 10:25 AM BOOK CUTTER Oxygen Saturation 93% 11/08/2024 10:25 AM BOOK CUTTER Inhaled Oxygen Concentration - - Weight 116.6 kg (257 lb) 11/08/2024 10:25 AM BOOK CUTTER Height 180.3 cm (5' 11 ) 11/08/2024 10:25 AM BOOK CUTTER Body Mass Index 35.84 11/08/2024 10:25 AM BOOK CUTTER Plan of Treatment Upcoming Encounters Date Type Department Care Team (Late st Contact Info) Description 06/06/2025 7:30 AM CDT Hospital Encounter [address] [address] eBrt Reynolds DO [address] [facility] [address] [place] [address] 06/06/2025 7:30 AM CDT - 06/06/2025 8:00 AM CDT Surgery [address] [address] Bert Reynolds DO [address] [facility] [address] [place] [address] COLONOSCOPY Scheduled Procedures Name Priority Associated Diagnoses Date/Ti me COLONOSCOPY Encounter for screening colonoscopy 06/06/2025 7:30 AM CDT Health Maintenance Due Date Last Done Comments Colon Cancer Screening-Colonoscopy 1967 Depression Screening 1967 Hepatitis C Screening 1967 Prostate Cancer Screening-PSA 1967 Pneumococcal vaccine <65 (1 of 2 - PCV) 1973 Hepatitis B Screening 1985 Regular Well Visit/Exam 18-64 1985 Zoster Vaccine (1 of 2) 2017 Influenza Vaccine (#1) 2024 Lung Cancer Screening 10/26/2025 10/25/2024 DTaP/Tdap/Td Vaccine (2 - Td or Tdap) 10/08/2027 Procedures Procedure Name Priority Date/Time Associated Diagnosis Comments DIFFERENTIAL AUTO Routine 11/08/2024 10: 58 AM BOOK CUTTER Centrilobular emphysema (HCC) CBC WITH AUTO DIFFERENTIAL Routine 11/08/2024 10:58 AM BOOK CUTTER Centrilobular emphysema (HCC) IGE Routine 11/08/2024 10:58 AM BOOK CUTTER Centrilobular emphysema (HCC) CT LUNG CANCER SCREENING Schedule Routine, Read Routine (OP Routine) 10/25/2024 4:13 PM BOOK CUTTER Personal history of nicotine dependence PULMONARY FUNCTION TEST (PFT) Routine 10/25/2024 4:06 PM BOOK CUTTER Chronic obstructive pulmonary disease with acute exacerbation (HCC) from Last 3 Months Results * (ABNORMAL) Differential, auto (11/08/2024 10:58 AM BOOK CUTTER) Neutrophil abs 9.5(H) 1.5 - 6.5 K/cumm [...] on 2018. Blood 11/08/2024 10:5 8 AM BOOK CUTTER 11/08/2024 1:34 PM BOOK CUTTER Eyal Collazo DO LAB BLOOD ORDERABLES Amelia schafer Result [facility] ([place]) [facility] Department [place] [address] * (ABNORMAL) CBC with auto differential (11/08/2024 10:58 AM BOOK CUTTER) WBC 13.9(H) 3.8 - 9.9 K/cumm Hgb [...] RDW SD 43.7 35.7 - 48.1 fL [facility] NRBC abs 0.00 0.00 - 0.01 K/cumm [facility] Blood 11/08/2024 10:5 8 AM BOOK CUTTER 11/08/2024 1:34 PM BOOK CUTTER Eyal Hirsch [facility] LAB BLOOD ORDERABLES Amelia l Result Performing Organization Address City/[facility] Co de Phone Number [facility] ([place]) [address] [facility] Department [place] [address] * (ABNORMAL) IgE (11/08/2024 10:58 AM BOOK CUTTER) IgE 247(H) <=100 IUnits/mL Comment:Testing performed by : [facility], 1 [place]., [address] Blood 11/08/2024 10:5 8 AM BOOK CUTTER 11/08/2024 4:59 PM BOOK CUTTER [facility] Torrey Collazo [facility] BLOOD ORDERABLES Amelia l Result Performing Organization Address [facility] de Phone Number [facility] ([place]) 1 [facility] Department [place] [employer] [place] [address] * CT Lung Cancer Screening (10/25/2024 4:13 PM BOOK CUTTER) Anatomical Region Laterality Modality Chest N/A Computed Tomogra phy 10/28/2024 9:04 AM BOOK CUTTER Narrative 10/28/2024 9:14 AM BOOK CUTTER EXAM DESCRIPTION: CT LUNG CANCER SCREENING REASON [...] 228). PLEURAE: No pneumothorax or pleural effusion. MEDIASTINUM/EILZABETH: No mediastinal or hilar lymphadenopathy within the [...] Jonathan Hough M.D. LB: FLORES Report ID: [id number] Reading Location: [id number] Procedure Note Jonathan Hough MD - 10/28/2024 [...] Jonathan Hough M.D. LB: FLORES Report ID: [id number] Reading Location: [place] [address] Eyal Collazo DO IMG CT PROCEDURES Final R esult * Pulmonary Function Test - (10/25/2024 4:06 PM BOOK CUTTER) Anatomical Region Laterality Modality PFT 10/25/2024 3:19 PM BOOK CUTTER Impressions 10/26/2024 1:25 PM BOOK CUTTER 1. Spirometry is consistent with moderate obstructive defect with reduced FVC in the setting of air trapping. 2. Lung volumes demonstrate air trapping. 3. Diffusion capacity is normal. Electronically signed by Eyal Collazo DO Pulmonary & Critical Care Narrative 10/26/2024 1:25 PM BOOK CUTTER PFT performed at:->[facility] PULMONARY FUNCTION TESTS Elie Torres 58 y.o. 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
== END 2025-01-11 13:39 | disposition home or self-care (01) ==
PROVIDERS: PCP Physician Assistant Surgical; Visit Provider Orthopaedic Surgery
DX: M25.511 Pain in right shoulder (principal); M25.512 Pain in left shoulder
CPT/HCPCS: 20610; 77002; J1010; J2003; Q9966

== ENCOUNTER 2025-01-25 08:34 | Emergency (ER) | payer OTHER, SELFPAY ==
--- NOTE | 2025-01-25 08:38 | ED.URI ---
HPI - URI/Sore Throat General Chief Complaint: Upper Respiratory Infection Stated Complaint: Cough Time Seen by Provider: 01/25/25 08:48 Source: patient and RN notes reviewed Mode of arrival: ambulatory Limitations: no limitations History of Present Illness HPI Narrative: 59-year-old male presents concern for 3 week history of cough, headache and runny nose. He has history of COPD, he has been using his albuterol inhaler 2 to 3 times a day with some relief. He has been taking Mucinex and Delsym. He denies fever. He is a smoker. He denies sinus pain, aches, chills, sweats. MD elicited complaint: cough Related Data Allergies Allergy/AdvReac Type Severity Reaction Status Date / Time No Known Allergies Allergy Verified 12/21/24 11:27 Review of Systems Review of Systems: CONSTITUTIONAL: Denies malaise, chills, sweats, or fever. EYES: Denies visual changes, redness, or discharge. ENT: Reports rhinorrhea. Denies congestion, sinus pain, otalgia and sore throat. CARDIOVASCULAR: Denies chest pain, palpitations, or edema. RESPIRATORY: Reports cough, chest congestion. Denies dyspnea. GASTROINTESTINAL: Denies abdominal pain, nausea, vomiting, diarrhea SKIN: Denies rash or itching. MUSCULOSKELETAL: Denies myalgia. NEUROLOGIC: Reports headache. All systems reviewed & are unremarkable except as noted in HPI and below PMFSH Past Medical History Medical History Olecranon bursitis, left elbow Positive colorectal cancer screening using Cologuard test COPD (chronic obstructive pulmonary disease) Surgical History Surgical History History of hernia surgery Family History Family History Other Hypertension Social History Social History (Updated 12/21/24 @ 14:05 by Karina Morales CMA) Smoking status: Current every day smoker Tobacco type: cigarettes Second hand tobacco smoke exposure: Yes Alcohol intake: current Substance use: never Substance use type: does not use Do You Feel Safe in your Home?: Yes Lack of Transportation: No Lack of Food: Never True Current Housing: I Have Housing Concerned About Future Housing: No Difficulty Paying Gas/Electric Bills: No Difficulty Paying for Meds: No Currently Unemployed: No Education: High School Diploma/GED Difficulty w/ Childcare or Family Care: No Living arrangements: alone Occupation/Education: occupation Additional occupation/education comments: [employer] Gender identity (if verbalized by the patient): Male Comments At time of signature, agree with nursing past medical, surgical, social and family history. There is no relevant family history pertinent to the presenting complaint Exam Narrative: GENERAL: Well-appearing, well-nourished, and in no acute distress. HEAD: Normocephalic EYES: PERRLA, conjunctivae clear ENT: Nares clear, clear discharge. Mucous membranes moist. TM pearly angulo with dull light reflex bilaterally; no tragal tenderness. Oropharynx not erythematous without lesions. Tonsils not enlarged and without exudate, no drooling, no hoarseness, no trismus, uvula midline. NECK: Supple. No lymphadenopathy CHEST: Scattered wheeze, otherwise Clear to auscultation, breath sounds equal. No wheezing, rhonchi, rales, or stridor. No respiratory distress, speaks in full sentences. Cough noted HEART: Regular rate and rhythm. No murmur heard. SKIN: Warm, dry, no rash. NEURO: Alert and oriented x3. PSYCH: Normal mood and affect Course Course Emergency Course: Patient is aware of diagnosis, understands and agrees to treatment plan. Anticipatory guidance given. Patient agrees to follow-up as directed and is aware of reasons to seek care at the emergency department. Portions of this record may have been created with voice recognition software Level of Care: Express Care Visit Vital Signs Vital signs: Reviewed. MDM - URI/Sore Throat MDM Narrative Medical decision making narrative: Differential diagnosis considered: Schulz virus, strep pharyngitis, allergic rhinitis, upper respiratory tract infection, sinusitis, rhinosinusitis, nasopharyngitis. viral pharyngitis, otitis media, otitis externa, pneumonia, bronchitis, viral cough syndrome, viral syndrome, and influenza. Exam findings show no acute concerns or changes; patient is non-toxic appearing and is in no distress. Patient is appropriate for outpatient treatment and follow-up. Lab Data Attestation: I reviewed the patient's lab results. Critical Care Time Critical Care Time Critical Care Time: No Discharge Plan Discharge Clinical Impression: COPD exacerbation Patient Disposition: Home, Self-Care Condition: Stable Instructions: Antibiotic Form, COPD (Chronic Obstructive Pulmonary Disease) (ED) Additional Instructions: 1) Please follow-up with your primary care doctor in the next 1-2 days. 2) If you have any worsening of symptoms or any other urgent concerns please go to the ER. 3) Please take medications as prescribed and continue taking your home medications as usual. 4) Please read and follow information included in discharge instructions. Patient Language: Sinhala Prescriptions: New azithromycin [Zithromax Z-Aman] 250 mg tablet See Rx Instructions .ROUTE .COMPLEX Qty: 6 0RF Rx Instructions: take 500 mg today (day 1), then 250 mg for 4 days (days 2-5) methylprednisolone [Medrol (Aman)] 4 mg tablets,dose pack See Rx Instructions .ROUTE .COMPLEX Qty: 21 0RF Rx Instructions: orally per package directions Follow-up/Referrals: Yusef,Manan Mendieta MD [Primary Care Provider] - Time of Disposition: 08:58
[2025-01-25 08:45] VITALS: BP 151/74; PULSE 99; RESP 16; TEMP 37.2; O2SAT 95
--- OUTSIDE RECORDS SUMMARY | 2025-01-25 08:53 | XMS_ITS | Referral Summary ---
Author Organization [facility] Medical Office Building B Address [address] [place] [address] Care Team Providers Care Eviction Specialist Name Role Phone Bruce Holbrook MD Primary Care Provider + Encounters Date Type Department Care Team Description 11/29/2024 Telephone [facility] Medical Group Pulmonary at [address] [place] [phone] Margarita Parsons LPN 11/11/2024 Telephone [facility] Gastroenterology at [address] [place] [phone] Bert Reynolds DO 11/08/2024 10:55 AM ACCOUNTS MANAGER Lab [address] Centrilobular emphysema (HCC) 11/08/2024 10:30 AM ACCOUNTS MANAGER Office Visit [facility] Medical Group Pulmonary at [address] [place] [address] Eyal Collazo DO Centrilobular emphysema (HCC) (Primary Dx); Tobacco use; Pulmonary nodules; Personal history of nicotine dependence from Last 3 Months Allergies No known [...] Date Smoking Tobacco: Every Day Cigarettes 1 26.2 Started: 1998 Passive Smoke Exposure: Past Smokeless [...] on file Legal Sex Male 11:49 PM ACCOUNTS MANAGER Gender Identity Not on file Sexual Orientation Not on file Last Filed Vital Signs Vital Sign Reading Time Taken Comments Blood Pressure 148/74 11/08/2024 10:25 AM ACCOUNTS MANAGER Pulse 93 11/08/2024 10:25 AM ACCOUNTS MANAGER Temperature 36.8 C (98.2 F) 11/08/2024 10:25 AM ACCOUNTS MANAGER Respiratory Rate 16 11/08/2024 10:25 AM ACCOUNTS MANAGER Oxygen Saturation 93% 11/08/2024 10:25 AM ACCOUNTS MANAGER Inhaled Oxygen Concentration - - Weight 116.6 kg (257 lb) 11/08/2024 10:25 AM ACCOUNTS MANAGER Height 180.3 cm (5' 11 ) 11/08/2024 10:25 AM ACCOUNTS MANAGER Body Mass Index 35.84 11/08/2024 10:25 AM ACCOUNTS MANAGER Plan of Treatment Upcoming Encounters Date Type Department Care Team (Late st Contact Info) Description 06/06/2025 7:30 AM CDT Hospital Encounter [facility] Center 1 [place] [address] Bert Reynolds DO [address] [place] [address] [place] [address] 06/06/2025 7:30 AM CDT - 06/06/2025 8:00 AM CDT Surgery [facility] 1 [place] [address] Bert Reynolds, [address] [facility] [address] [place] [address] COLONOSCOPY Scheduled Procedures Name Priority Associated Diagnoses Date/Ti me COLONOSCOPY Encounter for screening colonoscopy 06/06/2025 7:30 AM CDT Procedures Procedure Name Priority Date/Time Associated Diagnosis Comments DIFFERENTIAL AUTO Routine 11/08/2024 10: 58 AM ACCOUNTS MANAGER Centrilobular emphysema (HCC) CBC WITH AUTO DIFFERENTIAL Routine 11/08/2024 10:58 AM ACCOUNTS MANAGER Centrilobular emphysema (HCC) IGE Routine 11/08/2024 10:58 AM ACCOUNTS MANAGER Centrilobular emphysema (HCC) CT LUNG CANCER SCREENING Schedule Routine, Read Routine (OP Routine) 10/25/2024 4:13 PM ACCOUNTS MANAGER Personal history of nicotine dependence from Last 3 Months or Most Recently Relevant to Health Maintenance Results * (ABNORMAL) Differential, auto (11/08/2024 10:58 AM ACCOUNTS MANAGER) Neutrophil abs 9.5(H) 1.5 - 6.5 K/cumm [...] revised on 2018. Monocyte pct 8.3 % [facility] ([place]) Comment: Interpretive Data Percent cell [...] revised on 2018. Basophil pct 0.8 % [facility] ([place]) Comment: Interpretive Data Percent cell count reference ranges are not reported, since discordance with absolute values may lead to misinterpretation of CBC data. Current Interpretive Data was last revised on 2018. Blood 11/08/2024 10:5 8 AM ACCOUNTS MANAGER 11/08/2024 1:34 PM ACCOUNTS MANAGER Eyal Collazo DO LAB BLOOD ORDERABLES Amelia l Result [facility] ([place]) 1 [facility] Department [place] [address] * (ABNORMAL) CBC with auto differential (11/08/2024 10:58 AM ACCOUNTS MANAGER) WBC 13.9(H) 3.8 - 9.9 K/cumm Hgb 16.2 13.0 - 17.5 g/dL [facility] ([place]) Hct 47.6 38.9 - 50.3 % [facility] ([place]) Plt 328 150 - 400 K/cumm [facility] ([place]) MPV 9.0(L) 9.1 - 12.3 fL [facility] ([place]) RBC 4.91 4.30 - 5.80 M/cumm [facility] ([place]) MCV 96.9(H) 81.3 - 96.4 fL [facility] ([place]) MCH 33.0 27.1 - 33.3 pg [facility] ([place]) MCHC 34.0 32.3 - 35.7 g/dL [facility] ([place]) RDW CV 12.1 11.1 - 14.9 % [facility] ([place]) RDW SD 43.7 35.7 - 48.1 fL [facility] ([place]) NRBC abs 0.00 0.00 - 0.01 K/cumm [facility] ([place]) Blood 11/08/2024 10:5 8 AM ACCOUNTS MANAGER 11/08/2024 1:34 PM ACCOUNTS MANAGER Eyal Hirsch Collazo [employer] LAB BLOOD ORDERABLES Amelia l Result Performing Organization Address City/[facility]/ZIP Co de Phone Number [facility] ([place]) 1 [facility] [place] [address] * (ABNORMAL) IgE (11/08/2024 10:58 AM ACCOUNTS MANAGER) IgE 247(H) <=100 IUnits/mL Comment:Testing performed by : [facility], 1 [place]., [address] Blood 11/08/2024 10:5 8 AM ACCOUNTS MANAGER 11/08/2024 4:59 PM ACCOUNTS MANAGER Eyal Torrey [employer] LAB BLOOD ORDERABLES Amelia l Result [facility] ([place]) 1 [facility] [employer] [place] [address] * CT Lung Cancer Screening (10/25/2024 4:13 PM ACCOUNTS MANAGER) Anatomical Region Laterality Modality Chest N/A Computed Tomogra phy 10/28/2024 9:04 AM ACCOUNTS MANAGER Narrative 10/28/2024 9:14 AM ACCOUNTS MANAGER EXAM DESCRIPTION: CT LUNG CANCER SCREENING REASON [...] Jonathan Hough M.D. LB: LB Report ID: [id number] Reading Location: [id number] Procedure Note Jonathan Hough MD - 10/28/2024 [...] Jonathan Hough M.D. LB: FLORES Report ID: [id number] Reading Location: [place] [address] Eyal Collazo DO IMG CT PROCEDURES Final R esult from Last 3 Months or Most Recently Relevant to Health Maintenance Insurance [facility] Care Teams Eviction Specialist Relationship Specialty Start Date End Date Bruce Holbrook MD [address] [facility] [place] [address] PCP - General Internal Medicine 11/08/24
--- OUTSIDE RECORDS SUMMARY | 2025-01-25 08:53 | XMS_ITS | Clinical Summary ---
Author Organization [facility] Address [address] [place] [address] Care Team Providers Care Dining Room Coordinator Name Role Phone None, Provider MD Primary Care Provider Unavaila ble Allergies No known active allergies Medications fluticasone furoate-vilanter ol 200-25 MCG/INH inhalerIndicatio ns:Simple chronic bronchitis ([facility]),Wheezin g Inhale 1 puff into the lungs daily. 1 Inhaler 5 9 Active fluticasone-salm eterol (ADVAIR HFA) 230-21 MCG/ACT inhalerIndicatio ns:Wheezing,Acquisitions Librarian anjelica obstructive pulmonary disease, unspecified COPD type ([facility]) Inhale 2 puffs into the lungs 2 [...] obstructive pulmonar y disease, unspecified COPD type ([facility]) 06/13/2020 Simple chronic bronchitis ([facility]) 08/0 05/2019 Wheezing 06/29/2019 Depression 08/26/2012 Immunizations [...] Sex Assigned at Male 11/11/2018 4:37 PM 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
--- OUTSIDE RECORDS SUMMARY | 2025-01-25 08:53 | XMS_ITS | Clinical Summary ---
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 Recapping Machine Operator Name Role Phone Bruce Holbrook [...] Type Department Care Team Description 11/29/2024 Telephone [facility] Pulmonary at [address] [place] [address] Margarita Parsons LPN 11/11/2024 Telephone [facility] Gastroenterology at [address] [place] [address] Bert Reynolds, 11/08/2024 10:55 AM PHARMACY OPERATIONS MANAGER Lab [address] Centrilobular emphysema (HCC) 11/08/2024 10:30 AM PHARMACY OPERATIONS MANAGER Office Visit [facility] Pulmonary at [place] [address] [facility] [address] [place] [address] Eyal Collazo DO Centrilobular emphysema (HCC) (Primary Dx); Tobacco use; Pulmonary nodules; Personal history of nicotine dependence from Last 3 Months Medical History Medical [...] Date Smoking Tobacco: Every Day Cigarettes 1 .2 Started: 1998 Passive Smoke Exposure: Past Smokeless [...] on file Legal Sex Male 11:49 PM PHARMACY OPERATIONS MANAGER Gender Identity Not on file Sexual Orientation Not on file Obstetrics History Last Filed Vital Signs Vital Sign Reading Time Taken Comments Blood Pressure 148/74 11/08/2024 10:25 AM PHARMACY OPERATIONS MANAGER Pulse 93 11/08/2024 10:25 AM PHARMACY OPERATIONS MANAGER Temperature 36.8 C (98.2 F) 11/08/2024 10:25 AM PHARMACY OPERATIONS MANAGER Respiratory Rate 16 11/08/2024 10:25 AM PHARMACY OPERATIONS MANAGER Oxygen Saturation 93% 11/08/2024 10:25 AM PHARMACY OPERATIONS MANAGER Inhaled Oxygen Concentration - - Weight 116.6 kg (257 lb) 11/08/2024 10:25 AM PHARMACY OPERATIONS MANAGER Height 180.3 cm (5' 11 ) 11/08/2024 10:25 AM PHARMACY OPERATIONS MANAGER Body Mass Index 35.84 11/08/2024 10:25 AM PHARMACY OPERATIONS MANAGER Plan of Treatment Upcoming Encounters Date Type Department Care Team (Late st Contact Info) Description 06/06/2025 7:30 AM CDT Hospital Encounter [facility] [address] [place] [address] Bert Reynolds, DO [address] [place] [address] 06/06/2025 7:30 AM CDT - 06/06/2025 8:00 AM CDT Surgery [facility] [address] [place] [address] Bert Reynolds, [address] [place] [address] COLONOSCOPY Scheduled Procedures Name Priority Associated Diagnoses Date/Ti me COLONOSCOPY Encounter for screening colonoscopy 06/06/2025 7:30 AM CDT Health Maintenance Due Date Last Done Comments Colon Cancer Screening-Colonoscopy 1967 Depression Screening 1967 Hepatitis C Screening 1967 Prostate Cancer Screening-PSA 1967 Hepatitis B Screening 1985 Regular Well Visit/Exam 18-64 1985 Pneumococcal vaccine <65 (1 of 2 - PCV) 1986 Zoster Vaccine (1 of 2) 2017 Influenza Vaccine (#1) 2024 Lung Cancer Screening 10/26/2025 10/25/2024 DTaP/Tdap/Td Vaccine (2 - Td or Tdap) 10/08/2027 Procedures Procedure Name Priority Date/Time Associated Diagnosis Comments DIFFERENTIAL AUTO Routine 11/08/2024 10: 58 AM PHARMACY OPERATIONS MANAGER Centrilobular emphysema (HCC) CBC WITH AUTO DIFFERENTIAL Routine 11/08/2024 10:58 AM PHARMACY OPERATIONS MANAGER Centrilobular emphysema (HCC) IGE Routine 11/08/2024 10:58 AM PHARMACY OPERATIONS MANAGER Centrilobular emphysema (HCC) CT LUNG CANCER SCREENING Schedule Routine, Read Routine (OP Routine) 10/25/2024 4:13 PM PHARMACY OPERATIONS MANAGER Personal history of nicotine dependence from Last 3 Months or Most Recently Relevant to Health Maintenance Results * (ABNORMAL) Differential, auto (11/08/2024 10:58 AM PHARMACY OPERATIONS MANAGER) Neutrophil abs 9.5(H) 1.5 - 6.5 [...] on 2018. Blood 11/08/2024 10:5 8 AM PHARMACY OPERATIONS MANAGER 11/08/2024 1:34 PM PHARMACY OPERATIONS MANAGER [facility] Torrey Banner MD [facility] LAB BLOOD ORDERABLES Amelia l Result [facility] ([place]) [address] [facility] [place] [address] * (ABNORMAL) CBC with auto differential (11/08/2024 10:58 AM PHARMACY OPERATIONS MANAGER) [facility] WBC 13.9(H) 3.8 - 9.9 K/cumm Hgb [...] 43.7 35.7 - 48.1 fL [facility] ([place]) NRBC abs 0.00 0.00 - 0.01 K/cumm [facility] ([place]) Blood 11/08/2024 10:5 8 AM PHARMACY OPERATIONS MANAGER 11/08/2024 1:34 PM PHARMACY OPERATIONS MANAGER Eyal Collazo LAB BLOOD ORDERABLES Amelia l Result [facility] ([place]) [address] [facility] Department [place] [address] * (ABNORMAL) IgE (11/08/2024 10:58 AM PHARMACY OPERATIONS MANAGER) IgE 247(H) <=100 IUnits/mL Comment:Testing performed by : [facility], [address] [facility], [place]., [address] Blood 11/08/2024 10:5 8 AM PHARMACY OPERATIONS MANAGER 11/08/2024 4:59 PM PHARMACY OPERATIONS MANAGER Eyal Collazo DO LAB BLOOD ORDERABLES Amelia schafer Result JANINE KIDD ([place]) [address] [facility] [place] [address] * CT Lung Cancer Screening (10/25/2024 4:13 PM PHARMACY OPERATIONS MANAGER) Anatomical Region Laterality Modality Chest N/A Computed Tomogra phy 10/28/2024 9:04 AM PHARMACY OPERATIONS MANAGER Narrative 10/28/2024 9:14 AM PHARMACY OPERATIONS MANAGER EXAM DESCRIPTION: CT LUNG CANCER SCREENING [...] Jonathan Hough M.D. LB: LB Report ID: [id number] Reading Location: [place] [address] Procedure Note Jonathan Hough MD - 10/28/2024 [...] Jonathan Hough M.D. LB: FLORES Report ID: [id number] Reading Location: [place] [address] Eyal Collazo DO IMG CT PROCEDURES Final R esult from Last 3 Months or Most Recently Relevant to Health Maintenance [place] [address] Care Teams Tire Recapping Machine Operator Relationship Specialty Start Date End Date Bruce Holbrook MD [address] [place] [address] PCP - General Internal Medicine 11/08/24
== END 2025-01-25 09:03 | disposition home or self-care (01) ==
PROVIDERS: Emergency Provider Nurse Practitioner; PCP Internal Medicine
DX: J44.1 Chronic obstructive pulmonary disease with (acute) exacerbation (principal); F17.210 Nicotine dependence, cigarettes, uncomplicated
CPT/HCPCS: 99213; G0463

== ENCOUNTER 2025-06-27 18:14 | Emergency (ER) | payer OTHER, SELFPAY ==
--- OUTSIDE RECORDS SUMMARY | 2025-06-27 18:19 | XMS_ITS | Clinical Summary ---
Author Organization [facility] Building B Address [address] [place] [address] Care Team Providers Care Hearing Consultant Name Role Phone Bruce Holbrook MD Primary Care Provider + Allergies Active Allergy Reactions Criticality Noted Date Comments Codeine Dizziness High 02/07/2025 Medications albuterol HFA (PROVENTIL HFA,VENTOLIN HFA,PROAIR HFA) 90 mcg/actuation inhaler Inhale 2 puffs every 4 (four) hours as needed Active cetirizine 10 mg capsule Take 1 tablet by mouth daily Active fluticasone-umec lidin-vilanter (Trelegy Ellipta) 200-62.5-25 mcg inhaler Inhale 1 puff daily 1 each 11 11/08/2024 Active Active Problems Problem Noted Date Diagnosed Date Encounter for screening colonoscopy 11/11/2024 Pulmonary nodules 11/08/2024 Centrilobular emphysema 11/08/2024 Tobacco use 11/08/2024 Encounters Date Type Department Care Team Description 06/07/2025 Results Follow-Up [facility] Gastroenterology at [address] [place] [address] Bert Reynolds, Surgical pathology 06/06/2025 7:53 AM CDT Anesthesia Event [address] [address] Broderick Cook MD 06/06/2025 7:30 AM CDT - 06/06/2025 8:00 AM CDT Surgery [address] [address] Bert Reynolds, DO COLON REMOVAL SNARE 06/06/2025 6:49 AM CDT - 06/06/2025 9:07 AM CDT Hospital Encounter [facility] [address] [place] [address] Bert Reynolds, DO Encounter for screening colonoscopy Discharge Disposition: Discharge to home or self care 04/06/2025 3:12 PM CDT - 04/06/2025 11:59 PM CDT Hospital Encounter [facility] [address] [place] [address] Encounter for disability determination Discharge Disposition: Discharge to home or self care from Last 3 Months Surgical History Surgery Date Site/Laterality Comments COLONOSCOPY 06/06/2025 Medical History Medical History Date Comments COPD (chronic obstructive pulmonary disease) DJD (degenerative joint disease) Tobacco abuse Adenomatous colon polyp Family History Medical History Relation Name Comments Other Father Alive and well; Cancer Father's Sister Lung cancer Father's Sister Hypertension Mother Hypertension; Other Mother Alive and well; Relation Name Status Comments Father Alive Father's Sister Mother Alive Social History Tobacco Use Types Packs/Day Years Used Date Smoking Tobacco: Every Day Cigarettes 1 26.6 Started: 1998 Passive Smoke Exposure: Past Smokeless Tobacco: Former Chew Tobacco Cessation:Ready to Q uit: Not Asked; Counseling Given: Not Answered Alcohol Use Standard Drinks/Week Comments Yes 0 (1 standard drink = 0.6 oz pur e alcohol) AUDIT-C Answer Date Recorded Q1: How often do you have a drink containing alcohol? 4 or more times a week 06/05/2025 Q2: How many drinks containi ng alcohol do you have on a typical day when you are drinking? 5 or 6 Q3: How often do you have si x or more drinks on one occasion? Daily or almost daily 06/05/2025 Personal Safety Answer Date Recorded Have you ever been in or are you currently in a harmful physical or emotional relationship or is someone making you feel afraid or unsafe? 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 Gender Identity Not on file Sexual Orientation Not on file Obstetrics History Last Filed Vital Signs Vital Sign Reading Time Taken Comments Blood Pressure 161/95 06/06/2025 9:05 AM CDT Pulse 75 06/06/2025 9:05 AM CDT Temperature 36.4 C (97.5 F) 06/06/2025 9:05 AM CDT Respiratory Rate 18 06/06/2025 9:05 AM CDT Oxygen Saturation 100% 06/06/2025 9:05 AM CDT Inhaled Oxygen Concentration - - Weight 106.6 kg (235 lb) 06/06/2025 7:25 AM CDT Height 180.3 cm (5' 11) 06/06/2025 7:25 AM CDT Body Mass Index 32.78 06/06/2025 7:25 AM CDT Plan of Treatment Health Maintenance Due Date Last Done Comments Depression Screening 1965 Hepatitis C Screening 1965 Prostate Cancer Screening-PSA 1965 Hepatitis B Screening 1985 Regular Well Visit/Exam 18-64 1985 Pneumococcal vaccine <65 (1 of 2 - PCV) 1986 Zoster Vaccine (1 of 2) 2017 Influenza Vaccine (#1) 2025 Lung Cancer Screening 10/26/2025 10/25/2024 DTaP/Tdap/Td Vaccine (2 - Td or Tdap) 10/08/2027 Colon Cancer Screening-Colonoscopy 06/06/20352024 Procedures Procedure Name Priority Date/Time Associated Diagnosis Comments SURGICAL PATHOLOGY STAT 06/06/2025 12 :51 PM CDT Encounter for screening colonoscopy COLON REMOVAL SNARE 06/06/2025 7:46 AM CDT Encounter for screening colonoscopy COLONOSCOPY 06/06/2025 7:31 AM CDT XR KNEE LEFT 1 OR 2 VIEWS Schedule Routine, Read Routine (OP Routine) 04/06/2025 3:34 PM CDT Encounter for disability determination XR SHOULDER RIGHT 2 OR MORE VIEWS Schedule Routine, Read Routine (OP Routine) 04/06/2025 3:34 PM CDT Encounter for disability determination XR SHOULDER LEFT 2 OR MORE VIEWS Schedule Routine, Read Routine (OP Routine) 04/06/2025 3:34 PM CDT Encounter for disability determination XR KNEE RIGHT 1 OR 2 VIEWS Schedule Routine, Read Routine (OP Routine) 04/06/2025 3:34 PM CDT Encounter for disability determination CT LUNG CANCER SCREENING Schedule Routine, Read Routine (OP Routine) 10/25/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 Personal history of nicotine dependence from Last 3 Months or Most Recently Relevant to Health Maintenance Results * Surgical pathology (06/06/2025 12:51 PM CDT) Tissue (Polyp(s), colon/colorectal, esophageal, gastric) 06/06/2025 8:29 AM CDT Tissue specimen (specimen) (Polyp(s), colon/colorectal, esophageal, gastric) 06/06/2025 8:29 AM CDT Tissue specimen (specimen) (Polyp(s), colon/colorectal, esophageal, gastric) 06/06/2025 8:29 AM CDT Tissue specimen (specimen) (Polyp(s), colon/colorectal, esophageal, gastric) 06/06/2025 8:29 AM CDT Narrative PATHOLOGY [facility] - 06/07/2025 12:01 PM CDT EPIC results best viewed via link to PDF [facility] Department of Pathology [address] [place] [address] Note to Patients: This report may contain a detailed description of human tissue sent by a health care provider to the laboratory for pathologic evaluation. The content of this report is essential for diagnosis and may provide important critical findings. This information may be unfamiliar to patients to review without a medical professional present. It is advised that the patient review this report in the presence of a health care provider who can answer questions and explain the details. Final Report Patient Name: MANPREET MCGILL Address: [address] [place] [address] Gender: M : 1965 (Age: 59) Service: Gastro Location: [facility] #: [id number] Patient Type: [facility] Taken: 06/06/2025 Received: 06/06/2025 Accessioned: 06/06/2025 Reported: 06/07/2025 Physician(s):Madison AntonioO. Diagnosis: A. Descending colon polyp, biopsy: - Hyperplastic polyp. B. Transverse colon polyp x2, biopsy: - Tubular adenoma x1; negative for high-grade dysplasia. - Hyperplastic polyp x1. C. Sigmoid colon polyp, biopsy: - Hyperplastic polyp. D. Rectal polyp, biopsy: - Sessile serrated lesion (Former WHO designation: Sessile serrated adenoma/polyp). - Negative for dysplasia. Bethel Carroll M.D. Report Electronically Reviewed and Signed Out By Bethel Carroll M.D. 06/07/2025 12:01:29 Specimen(s) Received: A: Descending polyp x 1 B: Transverse polyp x 2 C: Sigmoid polyp x 1 D: Rectal polyp x 1 Microscopic Description: A. Sections show a hyperplastic polyp. No features of a sessile serrated adenoma are seen. There is no evidence of dysplasia or malignancy. B. Sections show a tubular adenoma x1 and a hyperplastic polyp x1. There is no evidence of high-grade dysplasia or invasive carcinoma. C. Sections show a hyperplastic polyp. No features of a sessile serrated adenoma are seen. There is no evidence of dysplasia or malignancy. D. Sections show a sessile serrated lesion. There is no evidence of dysplasia or malignancy. Clinical History: Screening colonoscopy. Gross Description: The specimen is submitted in four containers labeled MANPREET MCGILL. A. The first container is labeled descending polyp. It is 1 terry polypoid tissue fragment measuring 6 mm. Inked and bisected. All in A. B. The second container is labeled transverse polyp x2. It is 2 terry tissue fragments measuring 6 mm. All in B. C. The third container is labeled sigmoid polyp x1. It is one terry tissue fragment measuring 2 mm. All in C. D. The fourth container is labeled rectal polyp. It is 1 terry polypoid tissue fragment measuring 1.0 cm. Inked and bisected. All in D. T.A. Jaida Barnett., P.A./Ophelia Knott M.D. REPORT IMAGES AND SCANNED DOCUMENTS, IF INCLUDED, ONLY VIEWABLE IN PDF VERSION OF REPORT The performance characteristics of some immunohistochemical stains, fluorescence in-situ hybridization tests and immunophenotyping by flow cytometry cited in this report (if any) were determined by the Surgical Pathology Department at [facility] as part of an ongoing air quality engineer program and in compliance with federally mandated regulations drawn from the Clinical Laboratory Improvement Act of 1988 (CLIA '88). Some of these tests rely on the use of analyte specific reagents and are subject to specific labeling requirements by the US Food and Drug Administration. Such diagnostic tests may only be performed in a facility that is certified by the Department of Health and Human Services as a high complexity laboratory under CLIA '88. The FDA has determined that such clearance or approval is not necessary. This test is used for clinical purposes. It should not be regarded as investigational or for research. Nevertheless, federal rules concerning the medical use of analyte specific reagents require that the following disclaimer be attached to the report: This test was developed and its performance characteristics determined by the Surgical Pathology Department [facility]. It has not been cleared or approved by the U. S. Food and Drug Administration. Note for decalcified specimens: This assay has not been validated on decalcified tissues. Results should be interpreted with caution given the possibility of false negativity on decalcified specimens Bert Reynolds DO LAB PATHOLOGY ORDERABLES Final Result PATHOLOGY [facility] [address] [id number] * Colonoscopy (06/06/2025 7:31 AM CDT) Anatomical Region Laterality Modality Other Narrative Procedure Note Bert Reynolds DO - 06/06/2025 7:31 AM CDT [facility] Patient Name: Manpreet Mcgill Procedure Date: 06/06/2025 7:31 AM Date of : 1965 Admit Type: Outpatient Age: 59 Gender: Male Attending MD: Bert Reynolds D.O., Room: [facility] ENDOSCOPY ROOM 2 Note Status: Finalized Patient Profile: Refer to note in patient chart for documentation of history and physical. Procedure: Colonoscopy Indications: Screening for colorectal malignant neoplasm, Thisis the patient's first colonoscopy Referring MD: Bruce Holbrook M.D. Providers: Bert Reynolds D.O. Impression: - Two 3 to 4 mm polyps in the transverse colon, inthe proximal transverse colon and in the distaltransverse colon, removed with a cold snare. Resected and retrieved. - One 8 mm polyp in the descending colon, removedwith a hot snare. Resected and retrieved. - One 3 mm polyp in the sigmoid colon, removed witha cold snare. Resected and retrieved. - One 8 mm polyp in the distal rectum, removed witha hot snare. Resected and retrieved. Recommendation: - Discharge patient to home. - Resume previous diet. - Continue present medications. - Await pathology results. - Repeat colonoscopy in 3 years for surveillance. - Return to primary care physician PRN. Medicines: Monitored Anesthesia Care Complications: No immediate complications. Estimated Blood Loss: Estimated blood loss was minimal. Procedure: Pre-Anesthesia Assessment: - As per anesthesia. The benefits, risks and alternatives of theprocedure and sedation were discussed and informed consentwas obtained. All questions were answered. Please referto the signed informed consent document in the medical record. The bowel preparation used was Miralax and bisacodyl tablets via split dose instruction. The scope was passed under direct vision. TheColonoscope [id number] was introduced through the anus and advanced to the the cecum, identified by appendiceal orifice and ileocecal valve. The colonoscopy was performed without difficulty. The patient tolerated the procedure well. The qualityof the bowel preparation was adequate. Anatomical landmarks were photographed. Findings: The perianal and digital rectal examinations were normal. Two semi-pedunculated polyps were found in the transverse colon, proximal transverse colon and distal transverse colon. The polypswere 3 to 4 mm in size. These polyps were removed with a cold snare.Resection and retrieval were complete. An 8 mm polyp was found in the descending colon. The polyp was pedunculated. The polyp was removed with a hot snare. Resection and retrieval were complete. A 3 mm polyp was found in the sigmoid colon. The polyp was removedwith a cold snare. Resection and retrieval were complete. An 8 mm polyp was found in the distal rectum. The polyp was pedunculated. The polyp was removed with a hot snare. Resection and retrieval were complete. No additional abnormalities were found on retroflexion. Electronically signed by Bert Reynolds M.D. Bert Reynolds D.O. 06/06/2025 8:30:11 AM Number of Addenda: 0 Note Initiated On: 06/06/2025 7:31 AM Procedure Code(s): --- Professional --- 52030, Colonoscopy, flexible; with removal of tumor(s), polyp(s), or other lesion(s) by snare technique --- Technical --- 34227, Colonoscopy, flexible; with removal of tumor(s), polyp(s), or other lesion(s) by snare technique Diagnosis Code(s): --- Professional --- Z12.11, Encounter for screening for malignant neoplasm of colon D12.3, Benign neoplasm of transverse colon (hepatic flexure orsplenic flexure) D12.4, Benign neoplasm of descending colon D12.5, Benign neoplasm of sigmoid colon D12.8, Benign neoplasm of rectum --- Technical --- Z12.11, Encounter for screening for malignant neoplasm of colon D12.3, Benign neoplasm of transverse colon (hepatic flexure orsplenic flexure) D12.4, Benign neoplasm of descending colon D12.5, Benign neoplasm of sigmoid colon D12.8, Benign neoplasm of rectum CPT copyright 2022 [employer]. All rights reserved. The codes documented in this report are preliminary and upon fitness and wellness director reviewmay be revised to meet current compliance requirements. Recognized by the [place] [employer] for promoting quality in endoscopy Bert Reynolds DO ENDOSCOPY PROCEDURES Final Res ult * XR Knee Right 1 or 2 Views (04/06/2025 3:34 PM CDT) Anatomical Region Laterality Modality Lower Extremities, Knee Right Computed Radiography 04/07/2025 8:07 PM CDT Narrative 04/07/2025 8:08 PM CDT EXAM DESCRIPTION: XR KNEE RIGHT 1 OR 2 VIEWS; XR KNEE LEFT 1 OR 2 VIEWS; XR SHOULDER LEFT 2 OR MORE VIEWS; XR SHOULDER RIGHT 2 OR MORE VIEWS REASON FOR STUDY: Bilateral shoulder and knee pain. FINDINGS: Four views each shoulder and two views each knee submitted without comparison. Shoulders: No acute fracture. Mild bilateral glenohumeral and moderate bilateral acromioclavicular joint osteoarthritis. Alignment is normal. Knees: No acute fracture. Alignment is normal. Mild tricompartmental left knee osteoarthritis. Mild to moderate medial predominant tricompartmental right knee osteoarthritis. Large bilateral knee effusions. Left knee posterior recess loose body is noted. IMPRESSION: Mild bilateral glenohumeral and moderate bilateral acromioclavicular joint osteoarthritis. Mild tricompartmental left knee osteoarthritis. Mild to moderate medial predominant tricompartmental right knee osteoarthritis. Large bilateral knee effusions. THIS IS AN ELECTRONICALLY VERIFIED FINAL REPORT 04/07/2025 8:08 PM - Electronically signed by Bethel Cota M.D. MF: MOSES Report ID: [id number] Reading Location: [id number] Procedure Note Bethel Cota MD - 04/07/2025 EXAM DESCRIPTION: XR KNEE RIGHT 1 OR 2 VIEWS; XR KNEE LEFT 1 OR 2 VIEWS; XR SHOULDER LEFT 2 OR MORE VIEWS; XR SHOULDER RIGHT 2 OR MORE VIEWS REASON FOR STUDY: Bilateral shoulder and knee pain. FINDINGS: Four views each shoulder and two views each knee submitted withoutcomparison. Shoulders: No acute fracture. Mild bilateral glenohumeral and moderate bilateral acromioclavicular joint osteoarthritis. Alignment is normal. Knees: No acute fracture. Alignment is normal. Mild tricompartmental left knee osteoarthritis. Mild to moderate medial predominant tricompartmentalright knee osteoarthritis. Large bilateral knee effusions. Left knee posterior recess loose body is noted. IMPRESSION: Mild bilateral glenohumeral and moderate bilateral acromioclavicularjoint osteoarthritis. Mild tricompartmental left knee osteoarthritis. Mild to moderate medial predominant tricompartmental right knee osteoarthritis. Large bilateral knee effusions. THIS IS AN ELECTRONICALLY VERIFIED FINAL REPORT 04/07/2025 8:08 PM - Electronically signed by Bethel Cota M.D. MF: MOSES Report ID: [id number] Reading Location: [place] [address] Moises Flannery MD IMG XR PROCEDURES Final Result * XR Knee Left 1 or 2 Views (04/06/2025 3:34 PM CDT) Anatomical Region Laterality Modality Lower Extremities, Knee Left Computed Radiography 04/07/2025 8:07 PM CDT Narrative 04/07/2025 8:08 PM CDT EXAM DESCRIPTION: XR KNEE RIGHT 1 OR 2 VIEWS; XR KNEE LEFT 1 OR 2 VIEWS; XR SHOULDER LEFT 2 OR MORE VIEWS; XR SHOULDER RIGHT 2 OR MORE VIEWS REASON FOR STUDY: Bilateral shoulder and knee pain. FINDINGS: Four views each shoulder and two views each knee submitted without comparison. Shoulders: No acute fracture. Mild bilateral glenohumeral and moderate bilateral acromioclavicular joint osteoarthritis. Alignment is normal. Knees: No acute fracture. Alignment is normal. Mild tricompartmental left knee osteoarthritis. Mild to moderate medial predominant tricompartmental right knee osteoarthritis. Large bilateral knee effusions. Left knee posterior recess loose body is noted. IMPRESSION: Mild bilateral glenohumeral and moderate bilateral acromioclavicular joint osteoarthritis. Mild tricompartmental left knee osteoarthritis. Mild to moderate medial predominant tricompartmental right knee osteoarthritis. Large bilateral knee effusions. THIS IS AN ELECTRONICALLY VERIFIED FINAL REPORT 04/07/2025 8:08 PM - Electronically signed by Bethel Cota M.D. MF: MOSES Report ID: [id number] Reading Location: [id number] Procedure Note Bethel Cota MD - 04/07/2025 EXAM DESCRIPTION: XR KNEE RIGHT 1 OR 2 VIEWS; XR KNEE LEFT 1 OR 2 VIEWS; XR SHOULDER LEFT 2 OR MORE VIEWS; XR SHOULDER RIGHT 2 OR MORE VIEWS REASON FOR STUDY: Bilateral shoulder and knee pain. FINDINGS: Four views each shoulder and two views each knee submitted withoutcomparison. Shoulders: No acute fracture. Mild bilateral glenohumeral and moderate bilateral acromioclavicular joint osteoarthritis. Alignment is normal. Knees: No acute fracture. Alignment is normal. Mild tricompartmental left knee osteoarthritis. Mild to moderate medial predominant tricompartmentalright knee osteoarthritis. Large bilateral knee effusions. Left knee posterior recess loose body is noted. IMPRESSION: Mild bilateral glenohumeral and moderate bilateral acromioclavicularjoint osteoarthritis. Mild tricompartmental left knee osteoarthritis. Mild to moderate medial predominant tricompartmental right knee osteoarthritis. Large bilateral knee effusions. THIS IS AN ELECTRONICALLY VERIFIED FINAL REPORT 04/07/2025 8:08 PM - Electronically signed by Bethel Cota M.D. MF: MOSES Report ID: [id number] Reading Location: [id number] Moises Flannery MD IMG XR PROCEDURES Final Result * XR Shoulder Right 2 or More Views (04/06/2025 3:34 PM CDT) Anatomical Region Laterality Modality Upper Extremities, Shoulder Right Comp uted Radiography 04/07/2025 8:07 PM CDT Narrative 04/07/2025 8:08 PM CDT EXAM DESCRIPTION: XR KNEE RIGHT 1 OR 2 VIEWS; XR KNEE LEFT 1 OR 2 VIEWS; XR SHOULDER LEFT 2 OR MORE VIEWS; XR SHOULDER RIGHT 2 OR MORE VIEWS REASON FOR STUDY: Bilateral shoulder and knee pain. FINDINGS: Four views each shoulder and two views each knee submitted without comparison. Shoulders: No acute fracture. Mild bilateral glenohumeral and moderate bilateral acromioclavicular joint osteoarthritis. Alignment is normal. Knees: No acute fracture. Alignment is normal. Mild tricompartmental left knee osteoarthritis. Mild to moderate medial predominant tricompartmental right knee osteoarthritis. Large bilateral knee effusions. Left knee posterior recess loose body is noted. IMPRESSION: Mild bilateral glenohumeral and moderate bilateral acromioclavicular joint osteoarthritis. Mild tricompartmental left knee osteoarthritis. Mild to moderate medial predominant tricompartmental right knee osteoarthritis. Large bilateral knee effusions. THIS IS AN ELECTRONICALLY VERIFIED FINAL REPORT 04/07/2025 8:08 PM - Electronically signed by Bethel Cota M.D. MF: MOSES Report ID: [id number] Reading Location: [id number] Procedure Note Bethel Cota MD - 04/07/2025 EXAM DESCRIPTION: XR KNEE RIGHT 1 OR 2 VIEWS; XR KNEE LEFT 1 OR 2 VIEWS; XR SHOULDER LEFT 2 OR MORE VIEWS; XR SHOULDER RIGHT 2 OR MORE VIEWS REASON FOR STUDY: Bilateral shoulder and knee pain. FINDINGS: Four views each shoulder and two views each knee submitted withoutcomparison. Shoulders: No acute fracture. Mild bilateral glenohumeral and moderate bilateral acromioclavicular joint osteoarthritis. Alignment is normal. Knees: No acute fracture. Alignment is normal. Mild tricompartmental left knee osteoarthritis. Mild to moderate medial predominant tricompartmentalright knee osteoarthritis. Large bilateral knee effusions. Left knee posterior recess loose body is noted. IMPRESSION: Mild bilateral glenohumeral and moderate bilateral acromioclavicularjoint osteoarthritis. Mild tricompartmental left knee osteoarthritis. Mild to moderate medial predominant tricompartmental right knee osteoarthritis. Large bilateral knee effusions. THIS IS AN ELECTRONICALLY VERIFIED FINAL REPORT 04/07/2025 8:08 PM - Electronically signed by Bethel Cota M.D. MF: MOSES Report ID: [id number] Reading Location: [id number] Moises Flannery MD IMG XR PROCEDURES Final Result * XR Shoulder Left 2 or More Views (04/06/2025 3:34 PM CDT) Anatomical Region Laterality Modality Upper Extremities, Shoulder Left Comp uted Radiography 04/07/2025 8:07 PM CDT Narrative 04/07/2025 8:08 PM CDT EXAM DESCRIPTION: XR KNEE RIGHT 1 OR 2 VIEWS; XR KNEE LEFT 1 OR 2 VIEWS; XR SHOULDER LEFT 2 OR MORE VIEWS; XR SHOULDER RIGHT 2 OR MORE VIEWS REASON FOR STUDY: Bilateral shoulder and knee pain. FINDINGS: Four views each shoulder and two views each knee submitted without comparison. Shoulders: No acute fracture. Mild bilateral glenohumeral and moderate bilateral acromioclavicular joint osteoarthritis. Alignment is normal. Knees: No acute fracture. Alignment is normal. Mild tricompartmental left knee osteoarthritis. Mild to moderate medial predominant tricompartmental right knee osteoarthritis. Large bilateral knee effusions. Left knee posterior recess loose body is noted. IMPRESSION: Mild bilateral glenohumeral and moderate bilateral acromioclavicular joint osteoarthritis. Mild tricompartmental left knee osteoarthritis. Mild to moderate medial predominant tricompartmental right knee osteoarthritis. Large bilateral knee effusions. THIS IS AN ELECTRONICALLY VERIFIED FINAL REPORT 04/07/2025 8:08 PM - Electronically signed by Bethel Cota M.D. MF: MOSES Report ID: [id number] Reading Location: [id number] Procedure Note Bethel Cota MD - 04/07/2025 EXAM DESCRIPTION: XR KNEE RIGHT 1 OR 2 VIEWS; XR KNEE LEFT 1 OR 2 VIEWS; XR SHOULDER LEFT 2 OR MORE VIEWS; XR SHOULDER RIGHT 2 OR MORE VIEWS REASON FOR STUDY: Bilateral shoulder and knee pain. FINDINGS: Four views each shoulder and two views each knee submitted withoutcomparison. Shoulders: No acute fracture. Mild bilateral glenohumeral and moderate bilateral acromioclavicular joint osteoarthritis. Alignment is normal. Knees: No acute fracture. Alignment is normal. Mild tricompartmental left knee osteoarthritis. Mild to moderate medial predominant tricompartmentalright knee osteoarthritis. Large bilateral knee effusions. Left knee posterior recess loose body is noted. IMPRESSION: Mild bilateral glenohumeral and moderate bilateral acromioclavicularjoint osteoarthritis. Mild tricompartmental left knee osteoarthritis. Mild to moderate medial predominant tricompartmental right knee osteoarthritis. Large bilateral knee effusions. THIS IS AN ELECTRONICALLY VERIFIED FINAL REPORT 04/07/2025 8:08 PM - Electronically signed by Bethel Cota M.D. MF: MOSES Report ID: [id number] Reading Location: [id number] Moises Flannery MD IMG XR PROCEDURES Final Result * CT Lung Cancer Screening (10/25/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) Anatomical Region Laterality Modality Chest N/A Computed Tomogra phy 10/28/2024 9:04 AM RESIDENTIAL SERVICE TECHNICIAN Narrative 10/28/2024 9:14 AM RESIDENTIAL SERVICE TECHNICIAN EXAM DESCRIPTION: CT LUNG CANCER SCREENING REASON [...] Jonathan Hough M.D. LB: FLORES Report ID: [id number] Reading Location: [place] [address] Procedure Note Jonathan Hough MD - 10/28/2024 [...] Jonathan Hough M.D. LB: FLORES Report ID: [id number] Reading Location: [place] [address] Eyal Collazo DO IMG CT PROCEDURES Final R esult from Last 3 Months or Most Recently Relevant to Health Maintenance Insurance [facility] HMO/PPO Address: [address] [address] Advance Directives For more information, please contact: [phone] * Full Code (Latest Code Status on File) Date Activated Date Inactivated Comments 06/06/2025 7:28 AM 06/06/2025 1:12 PM * Full Code Date Activated Date Inactivated Comments 06/06/2025 7:28 AM 06/06/2025 7:28 AM Care Teams Hearing Consultant Relationship Specialty Start Date End Date Bruce Holbrook MD [address] [place] [address] PCP - General Internal Medicine 11/08/24
--- OUTSIDE RECORDS SUMMARY | 2025-06-27 18:19 | XMS_ITS | Encounter Summary ---
Author Organization [facility] Healthcare Address [address] [place] [address] Care Team Providers Care High School Hvac R Instructor Name Role Phone Bruce Holbrook MD Primary Care Provider + Encounter Details Date Type Department Care Team (Latest Contact Info) Description 06/07/2025 Results Follow-Up [facility] Gastroenterology at [address] [place] [id number] Bert Reynolds, [address] [place] [address] Surgical pathology Social History Tobacco Use Types Packs/Day Years Used Date Smoking Tobacco: Every Day Cigarettes 1 26.6 Started: 1998 Passive Smoke Exposure: Past Smokeless Tobacco: Former Chew Alcohol Use Standard Drinks/Week Comments Yes 0 [...] on file Legal Sex Male 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
--- OUTSIDE RECORDS SUMMARY | 2025-06-27 18:19 | XMS_ITS | Clinical Summary ---
Author Organization [facility] Address [address] [place] [address] Care Team Providers Care Can Line Examiner Name Role Phone None, Provider MD Primary Care Provider Unavaila ble Allergies No known active allergies Medications fluticasone furoate-vilanter ol 200-25 MCG/INH inhalerIndicatio ns:Simple chronic bronchitis ([facility]),Wheezin g Inhale 1 puff into the lungs daily. 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 obstructive pulmonary disease, unspecified COPD type ([facility]) Inhale 2 puffs into the lungs 2 [...] obstructive pulmonar y disease, unspecified COPD type ([facility]) 06/13/2020 Simple chronic bronchitis ([facility]) 08/0 05/2019 Wheezing 06/29/2019 Depression 08/26/2012 Immunizations Immunization Administration Dates Next Due Tdap (Generic) 10/08/2017 [...] Sex Assigned at Male 11/11/2018 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 Legal Sex Male 7:38 PM CDT Gender Identity Male 11/11/2018 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 Sexual Orientation Straight 11/11/2018 4: 37 PM MILL OPERATOR HELPER Last Filed Vital Signs Vital Sign Reading [...] 3:34 PM CDT Height 165.1 cm (5' 5) 06/12/2020 3:34 PM CDT Body Mass Index 33.78 06/12/2020 3:34 PM CDT Plan of Treatment Health Maintenance Due Date Last Done Comments Colorectal Cancer Screening Colonoscopy (10 Years) 1967 Annual Physical 1970 Hepatitis C 1985 Hepatitis B Vaccines (1 of 3 - 19+ 3-dose series) 1986 Pneumococcal Vaccine: 50+ Ye ars (1 of 2 - PCV) 1986 Zoster Vaccines (1 of 2) 2017 COVID-19 Vaccine (2023-2 5 season) 2024 DTaP, Tdap and Td Vaccines ( [...] patient's age to complete this topic Insurance [facility] Care Teams Can Line Examiner Relationship Specialty Start Date End Date None, Provider, PCP - General UNKNOWN PHYSICIAN SPECIALTY 01/20/24
--- OUTSIDE RECORDS SUMMARY | 2025-06-27 18:19 | XMS_ITS | Referral Summary ---
Author Organization [facility] Address [address] [place] [address] Care Team Providers Care Floriculturist Name Role Phone Bruce Holbrook MD Primary Care Provider + Encounters Date Type Department Care Team Description 06/07/2025 Results Follow-Up [facility] Gastroenterology at [address] [place] [address] Bert Reynolds DO Surgical pathology 06/06/2025 7:53 AM CDT Anesthesia Event [address] [address] Broderick Cook MD 06/06/2025 7:30 AM CDT - 06/06/2025 8:00 AM CDT Surgery [address] [address] Bert Reynolds DO COLON REMOVAL SNARE 06/06/2025 6:49 AM CDT - 06/06/2025 9:07 AM CDT Hospital Encounter [address] [address] Bert Reynolds DO Encounter for screening colonoscopy Discharge Disposition: Discharge to home or self care 04/06/2025 3:12 PM CDT - 04/06/2025 11:59 PM CDT Hospital Encounter [address] [address] Encounter for disability determination Discharge Disposition: Discharge to home or self care from Last 3 Months Allergies Active Allergy Reactions Criticality Noted Date [...] on file Legal Sex Male 11:49 PM OFFICE ASST Gender Identity Not on file Sexual Orientation [...] 06/06/2025 7:25 AM CDT Plan of Treatment Not on file Procedures Procedure Name Priority Date/Time Associated Diagnosis [...] Read Routine (OP Routine) 10/25/2024 4:13 PM OFFICE ASST Personal history of nicotine dependence from Last [...] gastric) 06/06/2025 8:29 AM CDT Narrative PATHOLOGY [facility] ([place]) - 06/07/2025 12:01 PM CDT EPIC results best viewed via link to PDF [facility] Department of Pathology [address] [place] [id number] Note to Patients: This report may contain [...] Final Report Patient Name: MANPREET MCGILL Address: [address] [place], [place] [address] Gender: M : 1965 (Age: 59) Service: Gastro Location: [facility] Hospital #: [id number] Patient Type: [facility] Taken: 06/06/2025 Received: 06/06/2025 Accessioned: 06/06/2025 Reported: 06/07/2025 Physician(s):Dr. Bert Reynolds, D.O. Diagnosis: A. Descending colon polyp, biopsy: - [...] Inked and bisected. All in D. T.A. Bubba Barnett P.A./Ophelia Knott M.D. REPORT IMAGES AND SCANNED DOCUMENTS, IF INCLUDED, ONLY VIEWABLE IN PDF VERSION OF REPORT The performance characteristics of some immunohistochemical stains, fluorescence in-situ hybridization tests and immunophenotyping by flow cytometry cited in this report (if any) were determined by the Surgical Pathology Department at [facility] as part of an ongoing quality rn program and in compliance with federally mandated [...] characteristics determined by the Surgical Pathology Department [facility]. It has not been cleared or approved by the U. S. Food and Drug Administration. Note for decalcified specimens: This assay has not been validated on decalcified tissues. Results should be interpreted with caution given the possibility of false negativity on decalcified specimens Bert Reynolds DO LAB PATHOLOGY ORDERABLES Final Result PATHOLOGY [facility]) [address] [place] [id number] * Colonoscopy (06/06/2025 7:31 AM CDT) Anatomical Region Laterality Modality Other Narrative Procedure Note Bert Reynolds DO - 06/06/2025 7:31 AM CDT [facility] Patient Name: Manpreet Mcgill Procedure Date: 06/06/2025 7:31 AM Date of : 1965 Admit Type: Outpatient Age: 59 Gender: Male Attending MD: Bert Reynolds D.O., Room: [facility] ENDOSCOPY ROOM 2 Note Status: Finalized Patient [...] scope was passed under direct vision. TheColonoscope [id number] was introduced through the anus and advanced [...] 7:31 AM Procedure Code(s): --- Professional --- 18732, Colonoscopy, flexible; with removal of tumor(s), polyp(s), or other lesion(s) by snare technique --- Technical --- 34635, Colonoscopy, flexible; with removal of tumor(s), polyp(s), [...] Benign neoplasm of rectum CPT copyright 2022 [employer]. All rights reserved. The codes documented in this report are preliminary and upon steward/stewardess lounge reviewmay be revised to meet current compliance requirements. Recognized by the [employer] for promoting quality [...] Bethel Cota M.D. MF: MOSES Report ID: [id number] Reading Location: [id number] Procedure Note Bethel Cota MD - 04/07/2025 [...] Bethel Cota M.D. MF: MOSES Report ID: [id number] Reading Location: [id number] Moises Flannery MD IMG XR PROCEDURES Final [...] Bethel Cota M.D. MF: MOSES Report ID: [id number] Reading Location: [id number] Procedure Note Bethel Cota MD - 04/07/2025 [...] 8:08 PM - Electronically signed by Bethel LOPES: MOSES Report ID: [id number] Reading Location: [id number] Moises Flannery MD IMG XR PROCEDURES Final [...] 8:08 PM - Electronically signed by Bethel LOPES: MOSES Report ID: [id number] Reading Location: [id number] Procedure Note Bethel Cota MD - 04/07/2025 [...] Bethel Cota M.D. MF: MOSES Report ID: [id number] Reading Location: [id number] Moises Flannery MD IMG XR PROCEDURES Final [...] Bethel Cota M.D. MF: MOSES Report ID: [id number] Reading Location: [place] [address] Procedure Note Bethel Coat MD - 04/07/2025 EXAM DESCRIPTION: XR KNEE [...] Bethel Cota M.D. MF: MOSES Report ID: [id number] Reading Location: [place] [address] Moises Flannery MD IMG XR PROCEDURES Final Result * CT Lung Cancer Screening (10/25/2024 4:13 PM OFFICE ASST) Anatomical Region Laterality Modality Chest N/A Computed Tomogra phy 10/28/2024 9:04 AM OFFICE ASST Narrative 10/28/2024 9:14 AM OFFICE ASST EXAM DESCRIPTION: CT LUNG CANCER SCREENING REASON [...] Jonathan Hough M.D. LB: LB Report ID: [id number] Reading Location: [id number] Procedure Note Jonathan Hough MD - 10/28/2024 [...] Jonathan Hough M.D. LB: LB Report ID: [id number] Reading Location: [place] [address] Eyal Collazo DO IMG CT PROCEDURES Final R esult from Last 3 Months or Most Recently Relevant to Health Maintenance Insurance [facility] Advance Directives For more information, please contact: [phone] * Full Code (Latest Code Status on File) Date Activated Date Inactivated Comments 06/06/2025 7:28 AM 06/06/2025 1:12 PM * Full Code Date Activated Date Inactivated Comments 06/06/2025 7:28 AM 06/06/2025 7:28 AM Care Teams Floriculturist Relationship Specialty Start Date End Date Green, Christopher R., MD [address] [place] [address] PCP - General Internal Medicine 11/08/24
[2025-06-27 18:20] VITALS: BP 140/70; PULSE 85; RESP 20; TEMP 36.7; O2SAT 96
--- NOTE | 2025-06-27 18:26 | ED_ITS ---
HPI - Eye Problem General Chief complaint: Eye Problems Stated complaint: fb in right eye Time Seen by Provider: 06/27/25 18:27 Source: patient Mode of arrival: ambulatory Limitations: no limitations History of Present Illness HPI Narrative: 59-year-old male presented for complaint of foreign body sensation to the right eye. Onset yesterday. He states he has tree debris in the eye and feels it moving. Rinsed the eye yesterday with water. Says he had no issues with it today but about 30 minutes prior to arrival felt a piece shift in the eye. Patient also says he woke with the eye crusted shut today and the eye has been red all day. Denies vision changes, eye pain, photophobia. MD chief complaint: eye pain Related Data Home Medications ?Medication ?Instructions ?Recorded ?Confirmed ?Last Taken ?Type cetirizine 10 mg capsule (Zyrtec) 10 mg PO DAILY 02/27/25 06/07/25 Unknown History fluticasone fur. 100 mcg-umeclid 1 inh inhalation DAILY 02/27/25 06/07/25 Unknown History 62.5 mcg-vilant 25 mcg inhalat.powder (Trelegy Ellipta) Allergies Allergy/AdvReac Type Severity Reaction Status Date / Time codeine Allergy Unknown Dizziness Verified 06/27/25 18:24 Review of Systems Review of Systems: CONSTITUTIONAL: Denies body aches, fever, chills EYES:Endorses redness FB sensation to right eye denies photophobia visual changes ENT: Denies rhinorrhea, congestion, sore throat, or otalgia. CARDIOVASCULAR: Denies chest pain, palpitations RESPIRATORY: Denies cough or dyspnea. GASTROINTESTINAL: Denies abdominal pain, nausea, vomiting, or diarrhea. SKIN: Denies rash, itching, or wounds. MUSCULOSKELETAL: Denies back pain, joint pain, or myalgia. NEUROLOGIC: Denies headache, numbness, tingling, or weakness. All systems reviewed & are unremarkable except as noted in HPI and below PMFSH Past Medical History Medical History Olecranon bursitis, left elbow Positive colorectal cancer screening using Cologuard test COPD (chronic obstructive pulmonary disease) Surgical History Surgical History History of hernia surgery Family History Family History Other Hypertension Social History Social History Smoking packs per day: 0.5 Smoking cigarettes per day: 10.0 Smoking status: Current every day smoker Tobacco type: cigarettes Second hand tobacco smoke exposure: Yes Alcohol intake: current Drinks per week: 21 Substance use: never Substance use type: does not use Current Housing: Decline to Answer Concerned About Future Housing: Decline to Answer Difficulty Paying Gas/Electric Bills: Decline to Answer Difficulty Paying for Meds: Decline to Answer Currently Unemployed: Decline to Answer Education: Decline to Answer Difficulty w/ Childcare or Family Care: Decline to Answer Living arrangements: alone Occupation/Education: occupation Additional occupation/education comments: [employer] Gender identity (if verbalized by the patient): Male Comments At time of signature, I have reviewed and agree with nursing past medical, surgical, social and family history unless otherwise noted. Please see nursing chart for further information. There is no relevant family history pertinent to the presenting complaint Exam Narrative: GENERAL: Well-appearing HEAD: Normocephalic, atraumatic. EYES: right conjunctival injection, mild upper eye lid swelling, purulent drainage, and frequent tearing. PERRLA, EOMI. Lid eversion shows no FB. ENT: Mucous membranes pink and moist. No rhinorrhea. SKIN: Warm, dry, no rash. Normal skin turgor. NEURO: No focal deficits. Alert and oriented x3 PSYCH: Normal affect. Course Course Emergency Course: Patient is aware of diagnosis, understands and agrees to treatment plan. Anticipatory guidance given. Patient agrees to follow-up as directed and is aware of reasons to seek care at the emergency department. Portions of this record may have been created with voice recognition software Level of Care: Express Care Visit Vital Signs Vital signs: Vital Signs Temperature 98.1 F 06/27/25 18:20 Pulse Rate 85 06/27/25 18:20 Respiratory Rate 20 06/27/25 18:20 Blood Pressure 140/70 06/27/25 18:20 Pulse Oximetry 96 06/27/25 18:20 Oxygen Delivery Room Air 06/27/25 18:20 Temperature 98.1 F 06/27/25 18:20 Pulse Rate 85 06/27/25 18:20 Respiratory Rate 20 06/27/25 18:20 Blood Pressure 140/70 06/27/25 18:20 Pulse Oximetry 96 06/27/25 18:20 Oxygen Delivery Room Air 06/27/25 18:20 Procedures FB Removal Eye Foreign Body #1: Foreign Body Removal Date: 06/27/25 Location: eye (R) Topical anesthetic used: tetracaine Evidence of corneal penetration: No Procedure performed under: other (vazquez lamp) Patient tolerated procedure: well and no complications Foreign Body Removal Narrative: Right eye was anesthetized with 1 drop of tetracaine and anesthesia was achieved. Lid was everted and examined for foreign body. No foreign body, corneal abrasion, or ulceration identified with Vazquez lamp. The eye was flushed with eye wash. Pt tolerated procedure well but continues to reports FB sensation. MDM - Eye Problem MDM Narrative Medical decision making narrative: Discussed physical exam findings; unable to visualize a fb. Advised close f/u with ophtho. Advised supportive measures and signs/symptoms to go to the ER. Pt is appropriate for outpt treatment and f/u. Differential Diagnosis Differential diagnosis: Likely corneal abrasion, conjunctivitis, acute iritis and other Discharge Plan Discharge Clinical Impression: Conjunctivitis Patient Disposition: Home Condition: Stable Instructions: Antibiotic Form, Eye Foreign Body (ED), Conjunctivitis (ED) Additional Instructions: Avoid touching or rubbing your eye. Use over the counter lubricating eye drops as needed for irritation Use a warm or cool washcloth on your eye for comfort Use eyedrops as directed Practice good handwashing and hygiene to prevent spread of infection You may take Tylenol or ibuprofen for pain Follow-up with PCP or manager application development if condition is not improving tomorrow Go to the emergency room if you have severe pain or pressure behind your eye, difficulty seeing, or other severe symptoms [facility] [phone] [facility] [phone] [facility] [phone] [facility] [phone] Patient Language: Malay Prescriptions: New ketorolac 0.5 % drops 1 drp RIGHT EYE Q6H PRN (Reason: pain) Qty: 3 0RF ofloxacin 0.3 % drops See Rx Instructions .ROUTE .COMPLEX Qty: 10 0RF Rx Instructions: put 2 drops into right eye every 4 hours x 2 days, then 2 drops 4 times/day days 3-7 No Action Trelegy Ellipta 100-62.5-25 mcg blister with device 1 inh inhalation DAILY Zyrtec 10 mg capsule 10 mg PO DAILY albuterol sulfate [Ventolin HFA] 90 mcg/actuation HFA aerosol inhaler 1 puff inhalation Q4H PRN (Reason: shortness of breath or wheezing) Qty: 6.7 0RF Follow-up/Referrals: Yusef,Manan Mendieta MD [Primary Care Provider] - Time of Disposition: 18:49
== END 2025-06-27 18:54 | disposition home or self-care (01) ==
PROVIDERS: Emergency Provider Nurse Practitioner Family; PCP Internal Medicine
DX: H10.9 Unspecified conjunctivitis (principal); F17.210 Nicotine dependence, cigarettes, uncomplicated; J44.9 Chronic obstructive pulmonary disease, unspecified
CPT/HCPCS: 99213; A9270; G0463